=== PATIENT | female | born 1975 | race Caucasian/White ===

== ENCOUNTER → 2017-08-16 08:47 | Outpatient (CLI) | payer MEDICAID, SELFPAY ==
--- NOTE | 2017-08-16 08:49 | MR_ITS ---
MR shoulder RT wo con HISTORY: Right shoulder pain extending into the elbow ORDERING PHYSICIAN: Mark Joseph MD PATIENT AGE: 42 years COMPARISON: Radiograph of 06/14/2016 TECHNIQUE: Standard multiplanar multiecho sequences are performed without contrast. FINDINGS: There are mild hypertrophic changes of the acromioclavicular joint. This however does not cause significant impingement upon the supraspinatus tendon. There is however, a low lying acromion laterally with minimal hypertrophic change along the undersurface of the acromium with subacromial stenosis of 5 mm. There is mild thickening of the supraspinatus tendon with slight increased T2 and T1 signal consistent with tendinopathy/tendinosis. No obvious tear of the supraspinatus or infraspinatus tendon there is also some thickening of the infraspinatus tendon consistent with tendinopathy/tendinosis. Small amount fluid is present in the subacromial region. Along the distal aspect and superior aspect of the supraspinatus muscle there is a small focal area of increased T2 signal suggesting a small amount of fluid. The muscle is discontinuous at this area suggests a small tear in the supraspinatus muscle. The subscapularis and teres minor tendons are intact. No obvious labral tear. Bicipital tendon is in place. A small amount fluid in the subcoracoid region. No fracture or bone bruise. IMPRESSION: 1. Tendinopathy/tendinosis of the supraspinatus and infraspinatus tendons. 2. Mild acromioclavicular arthropathy with subacromial stenosis secondary to bony spurring along the undersurface of the lateral aspect of the acromion. 3. Suspect a small tear of the superior lateral aspect of the supraspinatus muscle. No definite rotator cuff tear however.
== END ==
PROVIDERS: PCP Internal Medicine Adolescent Medicine; Visit Provider Orthopaedic Surgery
DX: M25.511 Pain in right shoulder (principal); G89.29 Other chronic pain; M75.41 Impingement syndrome of right shoulder
CPT/HCPCS: 73221

== ENCOUNTER → 2017-12-11 08:43 | Outpatient (CLI) | payer MEDICAID, SELFPAY ==
[2017-12-11 10:46] LABS: Anion Gap 13.5 mEq/L (5-15); Blood Urea Nitrogen 16 mg/dL (7-18); Carbon Dioxide 26 mmol/L (21.0-32.0); Chloride 105 mmol/L (98-107); Creatinine,Serum 0.93 mg/dL (0.55-1.02); Estimated Glomerular Filt Rate 66 ml/min (>60); GFR (African American) 80 ML/MIN (>60); Glucose 128 mg/dL (74-106); Potassium 3.5 mmoL/L (3.5-5.1); Sodium 141 mmol/L (136-145)
== END ==
PROVIDERS: Visit Provider Internal Medicine
DX: I11.9 Hypertensive heart disease without heart failure (principal); G47.33 Obstructive sleep apnea (adult) (pediatric)
CPT/HCPCS: 36415; 80048

== ENCOUNTER → 2017-12-24 15:57 | Outpatient (CLI) | payer MEDICAID, SELFPAY ==
[2017-12-24 16:18] LABS: Urine Pregnancy, HCG Qual. Negative (Negative)
[2017-12-24 16:19] LABS: Basophils # 0.1 K/mm3 (0-0.2); Basophils % 0.5 % (0.1-2.0); Eosinophils # 0.5 K/mm3 (0.0-0.4); Eosinophils % 4.2 % (0.1-12.0); Hematocrit 43.6 % (37.0-47.0); Hemoglobin 14.1 g/dL (12.2-16.2); Lymphocytes # 3.1 K/mm3 (0.7-4.5); Lymphocytes % 26.7 K/mm3 (10-50); Mean Corpuscular HGB Conc 32.3 g/dL (31.8-35.4); Mean Corpuscular Hemoglobin 28.2 pg (27.0-31.2); Mean Corpuscular Volume 87.3 fl (81-99); Mean Platelet Volume 7.9 fl (7.4-10.4); Monocytes # 0.7 K/mm3 (0.1-1.0); Monocytes % 5.8 % (1.7-9.3); Neutrophils # 7.4 K/mm3 (1.8-7.8); Neutrophils % 62.8 % (37.0-80.0); Platelet Count 350 K/mm3 (142-424); Red Blood Count 4.99 M/mm3 (4.20-5.40); Red Cell Distribution Width 13.5 % (11.5-17.5); White Blood Count 11.7 K/mm3 (4.8-10.8)
--- NOTE | 2017-12-24 16:21 | XR_ITS ---
XR chest 2V HISTORY: ITS.REASON: HTN ORDERING PHYSICIAN: Mark Joseph MD PATIENT AGE: 42 years COMPARISON: 05/22/2011 FINDINGS: The cardiomediastinal silhouette and pulmonary vascularity are within normal limits. The lungs are clear without infiltrates, suspicious nodules, or pleural effusions. No acute bony abnormalities. IMPRESSION: Negative chest, no acute finding
[2017-12-24 18:03] LABS: Alanine Aminotransferase 22 U/L (12-78); Albumin Level 4.2 gm/dL (3.4-5.0); Albumin/Globulin Ratio 1.1 (1.1-1.8); Alkaline Phosphatase 96 U/L (46-116); Anion Gap 14.7 mEq/L (5-15); Aspartate Amino Transferase 14 U/L (15-37); Bilirubin,Total 0.9 mg/dL (0.2-1.0); Blood Urea Nitrogen 35 mg/dL (7-18); Calcium 9.5 mg/dL (8.5-10.1); Carbon Dioxide 30 mmol/L (21.0-32.0); Chloride 103 mmol/L (98-107); Creatinine,Serum 1.51 mg/dL (0.55-1.02); Estimated Glomerular Filt Rate 38 ml/min (>60); GFR (African American) 46 ML/MIN (>60); Globulin 3.7 gm/dl (1.3-3.2); Glucose 97 mg/dL (74-106); Potassium 3.7 mmoL/L (3.5-5.1); Sodium 144 mmol/L (136-145); Total Protein,Serum 7.9 gm/dL (6.4-8.2)
== END ==
PROVIDERS: PCP Internal Medicine Adolescent Medicine; Visit Provider Orthopaedic Surgery
DX: Z01.818 Encounter for other preprocedural examination (principal); M25.511 Pain in right shoulder; M75.41 Impingement syndrome of right shoulder; G89.29 Other chronic pain
CPT/HCPCS: 36415; 71046; 80053; 81025; 85025; 93005

== ENCOUNTER 2018-04-02 10:00 | Outpatient (RCR) | payer MEDICAID, SELFPAY ==
--- NOTE | 2018-02-05 10:20 | HMH.OTOPEV ---
OT Inpatient Evaluation Rehab OT Outpatient Eval Start: 02/05/18 10:09 Freq: Status: Active Protocol: Document 02/05/18 10:10 TFRY (Rec: 02/05/18 10:19 TFRY [id number]) Electronically Signed By Jennifer Santiago OT 02/05/18 10:10 Outpatient Therapy Subjective History Subjective History THIS IS A 42 YEAR OLD RIGHT HANDED FEMALE REFERRED TO OCCUPATIONAL THERAPY PATIENT STATUS POST ARTHROSCOPIC BICEPS TENOTOMY, SUBACROMIAL DECOMPRESSION AND DISTAL CLAVICLE EXERSION ON 01/15/18. Chief Complaint Pain Symptom Type Ache Dull Symptoms Relieved By Rest/Positioning Symptoms Aggravated By Physical Activity Prior Functional Limitations None Current Functional Limitations Reaching Sleeping Symptom Description Constant but Variable Level of pain today (0-10) 5 Pain scale - at its best (0-10) 2 Pain scale - at its worst (0-10) 8 Shoulder/Elbow Eval Shoulder Objective Measurements Shoulder ROM Right Shoulder ROM Limitations Pain Shoulder Abduction Active Range of 140 Motion (degrees) Shoulder Abduction Passive Range of 140 Motion (degrees) Shoulder Flexion Active Range of Motion 140 (degrees) Query Text: Shoulder Flexion Passive Range of Motion 150 (degrees) Shoulder External Rotation Active Range 40 of Motion (degrees) Shoulder External Rotation Passive Range 60 of Motion (degrees) Shoulder Internal Rotation Active Range WFL of Motion (degrees) Shoulder Internal Rotation Passive Range WFL of Motion (degrees) pain with passive ROM shoulder exam right standard decreased ROM shoulder exam standard right Shoulder MMT Shoulder Strength Reason Not Measured Orthopedic Precautions Elbow Objective Measurements OT Outpatient Assessment Impairments Problems/Impairments Impaired Range of Motion Impaired Strength Impaired Lifting Impaired Dressing Impaired Shower/Bathing Impaired Household Care Subjective C/O Pain Prognosis Rehab Potential Fair Clinical Impression Consistent with Diagnosis Yes Short Term Goals Number of Weeks 3 Increase Range of Motion Yes: RIGHT SHOULDER AROM WFL Increase Strength Yes: RIGHT
== END 2018-04-02 10:05 | disposition home or self-care (01) ==
LOC: OT 10:00
PROVIDERS: PCP Internal Medicine Adolescent Medicine; Visit Provider Orthopaedic Surgery
DX: M67.911 Unspecified disorder of synovium and tendon, right shoulder (principal); M75.41 Impingement syndrome of right shoulder; M19.011 Primary osteoarthritis, right shoulder
CPT/HCPCS: 97014; 97110; 97140; 97165; G0283

== ENCOUNTER → 2018-04-18 08:41 | Outpatient (CLI) | payer MEDICAID, SELFPAY ==
--- NOTE | 2018-04-18 08:43 | XR_ITS ---
XR shoulder RT min 2V HISTORY: Right shoulder pain, follow-up surgery ITS.REASON: sp RIGHT shoulder surgery/ dos 01/15/18 ORDERING PHYSICIAN: Mark Joseph MD PATIENT AGE: 42 years Comparison: 06/14/2016 FINDINGS: There has been an interval osteotomy of the acromioclavicular joint. Glenohumeral joint has an unremarkable appearance. No obvious subacromial stenosis. IMPRESSION: Status post osteotomy of the AC joint otherwise negative
== END ==
PROVIDERS: PCP Internal Medicine Adolescent Medicine; Visit Provider Orthopaedic Surgery
DX: Z47.89 Encounter for other orthopedic aftercare (principal)
CPT/HCPCS: 73030

== ENCOUNTER → 2018-09-02 16:08 | Outpatient (CLI) | payer MEDICAID, SELFPAY ==
--- NOTE | 2018-09-02 16:11 | MM_ITS ---
MM Dig screening mamm BI w/CAD CAD Screening COMPARISON: None, this is baseline INDICATION: There is a history of breast cancer patient's great grandmother TECHNIQUE: Standard CC and MLO images were obtained. R2 CAD reviewed. FINDINGS: The breasts are composed primarily of fat with minimal scattered fiber glandular densities throughout each breast. There is a question of a symmetric density with irregular borders upper central portion right breast at the 12:00 position. This most likely is a summation shadow but since this is the baseline study with family history of breast cancer recommend the patient return for spot compression views for better evaluation. There are no suspicious microcalcifications. IMPRESSION: Fatty type breast parenchyma with possible asymmetric density right breast BI-RADS Category: 0 Need Additional Imaging Evaluation RECOMMENDED FOLLOW-UP: IMM - IMMEDIATE FOLLOW-UP RECOMMENDED (A letter has been sent to the patient regarding results of the study.)
== END ==
PROVIDERS: PCP Internal Medicine Adolescent Medicine; Visit Provider Internal Medicine Adolescent Medicine
DX: Z12.31 Encounter for screening mammogram for malignant neoplasm of breast (principal)
CPT/HCPCS: 77067

== ENCOUNTER → 2018-09-13 12:52 | Outpatient (CLI) | payer MEDICAID, SELFPAY ==
--- NOTE | 2018-09-13 12:55 | MM_ITS ---
MM Dig mamm DX unilat RT CAD INDICATION: Follow-up abnormal mammogram ORDERING PHYSICIAN: Abner Baca MD PATIENT AGE: 43 years COMPARISON: 09/02/2018 TECHNIQUE: Problem-solving views performed of the asymmetric density in the lateral aspect of the right breast FINDINGS: The area of asymmetric density does appear to compress out as fibroglandular tissue. No discrete mass or malignant appearing microcalcifications evident. IMPRESSION: No convincing evidence of malignancy. Probably benign findings. Recommend 6 month follow-up to confirm baseline in this patient. BI-RADS Category: 3 Probably Benign Finding Short Term Follow-up RECOMMENDED FOLLOW-UP: 6M - 6 MONTH FOLLOW-UP (A letter has been sent to the patient regarding results of the study.)
== END ==
PROVIDERS: PCP Internal Medicine Adolescent Medicine; Visit Provider Internal Medicine Adolescent Medicine
DX: R92.8 Other abnormal and inconclusive findings on diagnostic imaging of breast (principal)
CPT/HCPCS: 77065

== ENCOUNTER → 2018-12-12 06:31 | Outpatient (CLI) | payer MEDICAID, SELFPAY ==
--- NOTE | 2018-12-12 06:32 | NM_ITS ---
SPECT MYOCARDIAL PERFUSION SCAN, REST AND STRESS: EXERCISE STRESS: [facility] REVIEW QGS EF AND WALL MOTION EVALUATION: QPS - PERFUSION EVALUATION: Rest imaging performed after administration of10.08 millicuries Tc MIBI. Dose administered [id number] a.m., with imaging thereafter. Stress imaging was then performed following5 minutes 30 seconds of exercise stress. The patient achieved a heart [id number] with projected heart rate of151 . Resting BP124/84 with stress 184/86. At maximum exercise stress,30.2 millicuries Tc MIBI administered at830 a.m. with [id number] minutes thereafter. FINDINGS: Perfusion Evaluation: The single slice spect images as well as the [facility] bull's-eye data summary were reviewed. Wall Motion and Ejection Fraction Evaluation: Gated SPECT review and analysis used to evaluate these features. There is a 64 % left ventricular ejection fraction. There seems to be good wall motion Stress images reveal uniform myocardial activity while rest images reveal decreased activity in the anterior wall. IMPRESSION: Abnormal stress test with reverse redistribution in the anterior wall accompanied by anterior apical hypokinesis. Normal ejection fraction
--- NOTE | 2018-12-12 06:32 | CA_ITS ---
PROCEDURE: 2-D M-mode and color Doppler study INDICATIONS FOR THE TEST: Chest pain X COPD Heart Murmur Tobacco Smoking Palpitations FatigueX Syncope EdemaX HypertensionXDiabetes Mellitus Rheumatic Fever SOBXDOEXObesityXHyperlipidemiaX Family History HD Additional History PATIENT INFORMATION HEIGHT: 63 WEIGHT:226 GENDER: Female B/P:120/55 2-D/M-MODE INTERPRETATION: 2-D MEASUREMENTS OBSERVED VALUES IN CMS Right Ventricular Dimension (RVDd) 2.2 Interventricular Septum (Thickness)(IVsd) .8 Left Ventricular Internal Dimensions(LVIDd) 4.8 Left Ventricular Posterior Wall (Thickness)(LVPWd) .8 Aortic Root 3.1 Aortic Cusp Separation 1.9 Left Atrial Dimensions (LAD) 2.7 2D 1. Left atrium is normal size, left ventricle is normal size, there is no concentric left ventricular hypertrophy, with no regional wall motion abnormality. 2. The right atrium and right ventricle are normal size and contractility. 3. The aortic, mitral and tricuspid valves are grossly normal. 4. The pulmonic valve is poorly visualized. 5. No significant pericardial effusion noted. DOPPLER INTERROGATION: Doppler interrogation of the aortic, mitral and tricuspid valvular presence of trace mitral and tricuspid regurgitation of no hemodynamic significance, diastolic parameters are within normal range. CONCLUSION: 1. Normal left ventricular size, preserved left ventricular systolic function, visually estimated ejection fraction 55% with no regional wall motion abnormality, diastolic parameters are within normal range. 2. Mild mitral and tricuspid regurgitation 3. No significant pericardial effusion noted.
--- NOTE | 2018-12-12 09:38 | HMH.ITSHM ---
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 [] omeprazole ranitidine lisinopril carvedilol atorvastatin
== END ==
PROVIDERS: PCP Internal Medicine Adolescent Medicine; Visit Provider Internal Medicine
DX: R07.9 Chest pain, unspecified (principal); R53.83 Other fatigue; I10 Essential (primary) hypertension; R06.02 Shortness of breath; R94.39 Abnormal result of other cardiovascular function study; R06.00 Dyspnea, unspecified; E66.9 Obesity, unspecified; E78.5 Hyperlipidemia, unspecified
CPT/HCPCS: 78452; 93017; 93306; A9502

== ENCOUNTER → 2018-12-27 14:02 | Outpatient (CLI) | payer MEDICAID, SELFPAY | PROVIDERS: PCP Internal Medicine Adolescent Medicine; Visit Provider Physician Assistant | DX: I77.0 Arteriovenous fistula, acquired (principal); M79.601 Pain in right arm | CPT/HCPCS: 93931 ==

== ENCOUNTER → 2019-02-21 14:48 | Outpatient (CLI) | payer MEDICAID, SELFPAY ==
--- NOTE | 2019-02-21 14:53 | MM_ITS ---
MM Dig mamm DX unilat RT CAD INDICATION: Follow-up abnormal mammogram, 6 month follow-up ORDERING PHYSICIAN: Abner Baca MD PATIENT AGE: 43 years COMPARISON: 09/13/2018, 09/02/2018 TECHNIQUE: Standard images performed along with spot compression views and rolled views of the right breast FINDINGS: Mostly fatty replaced fibroglandular tissue. Previously noted questionable area of architectural distortion in lateral aspect of the right breast appears less apparent with some internal fat in this region on the cc view no malignant. No mass or malignant appearing microcalcification. IMPRESSION: Benign findings, no evidence of malignancy. Recommend continued six-month follow-up of both breasts. Patient may return to screening at that time BI-RADS Category: 2 Benign Finding(s) RECOMMENDED FOLLOW-UP: 6M - 6 MONTH FOLLOW-UP (A letter has been sent to the patient regarding results of the study.)
== END ==
PROVIDERS: PCP Internal Medicine Adolescent Medicine; Visit Provider Internal Medicine Adolescent Medicine
DX: R92.8 Other abnormal and inconclusive findings on diagnostic imaging of breast (principal)
CPT/HCPCS: 77065

== ENCOUNTER → 2019-09-03 15:48 | Outpatient (CLI) | payer OTHER, SELFPAY ==
--- NOTE | 2019-09-03 15:54 | XR_ITS ---
PROCEDURE: XR CHEST 2V CLINICAL HISTORY: HIGH RISK MEDS Dyspnea, cough COMPARISON: CXR2V XR chest 2V from 12/24/2017 FINDINGS: The cardiomediastinal silhouette and pulmonary vascularity are within normal limits. The lungs are clear without infiltrates, suspicious nodules, or pleural effusions. No acute bony abnormalities. IMPRESSION: No acute findings. Dictated by: Jayce Mcnulty 09/03/2019 17:21 Electronically signed by Jayce Mcnulty in [place] 09/03/2019 17:21
== END ==
PROVIDERS: PCP Internal Medicine Adolescent Medicine; Visit Provider Nurse Practitioner
DX: Z79.899 Other long term (current) drug therapy (principal)
CPT/HCPCS: 71046

== ENCOUNTER → 2019-12-11 13:07 | Outpatient (CLI) | payer OTHER, SELFPAY | PROVIDERS: PCP Internal Medicine Adolescent Medicine; Visit Provider Nurse Practitioner Family | DX: G47.33 Obstructive sleep apnea (adult) (pediatric) (principal); R53.83 Other fatigue; Z68.41 Body mass index [BMI] 40.0-44.9, adult | CPT/HCPCS: 95806 ==

== ENCOUNTER → 2020-01-27 10:40 | Outpatient (CLI) | payer OTHER, SELFPAY ==
[2020-01-27 13:45] LABS: Coronavirus 19 IgG Antibody Negative (Negative); Coronavirus 19 IgM Antibody Negative (Negative)
== END ==
PROVIDERS: Visit Provider Specialist
DX: Z01.818 Encounter for other preprocedural examination (principal); G47.33 Obstructive sleep apnea (adult) (pediatric)
CPT/HCPCS: 36415; 86328

== ENCOUNTER → 2020-02-27 15:10 | Outpatient (CLI) | payer OTHER, SELFPAY ==
--- NOTE | 2020-02-27 16:03 | MM_ITS ---
PROCEDURE: MM DIG SCREENING MAMM BI W/CAD Referring Doctor: Niki Jacome Patient Age:44Y CLINICAL INDICATION: SCREENING routine screening mammogram 44-year-old. Takes Estrogen. No new complaints. Family history maternal great grandmother with breast cancer COMPARISON: MG SCBI MM Dig screening mamm BI w/CAD from 09/02/2018 MG DXRT MM Dig mamm DX unilat RT CAD from 09/13/2018 MG DIG MAMM-DX UNI-RT from 02/21/2019 TECHNIQUE: Standard CC and MLO images were obtained. R2 CAD reviewed. Bilateral digital breast tomosynthesis included. Additional left breast MLO nipple profile view included FINDINGS: Lower density breast with moderate fatty replacement and minimal residual fibroglandular elements. Left breast, stable with no new findings of significant concern Small focal rather linear area of density towards the medial/superior left breast noted with similar feature on previous 2019 left study. It appears to dissipate between the 2 standard MLO views; with no focal mass here on tomosynthesis Right breast: No new areas significant concern Small focal area of density appears stable compared to the February, September and August 2018 mammogram studies. It appears slightly stellate but dissipates on multiple views and appears to dissipate on today's tomosynthesis-the supporting stability. However patient does warrant close ongoing follow-up for these 2 minor areas of asymmetry. A bilateral mammogram Mammogram 6-9 months suggested to further confirm stability of the small densities younger the patient. IMPRESSION: No significant new findings. . However small minor bilateral asymmetric densities deep breasts again noted,-which would benefit from short interval follow-up again to further confirm stable baseline character . Suggest bilateral mammogram 6-9 months months to further confirm stability in this younger patient hopefully with routine protocol thereafter BI-RAD Category: 3 Probably Benign Finding Short Term Follow-up Follow-upP: Bilateral follow-up 6-9 months (A letter has been sent to the patient regarding results of the study.) Dictated by: Julio Cali MD 02/29/2020 10:38 Julio Cali MD in [place] 02/29/2020 10:38
[2020-02-27 16:13] VITALS: BMI 42.3
== END ==
PROVIDERS: PCP Internal Medicine Adolescent Medicine; Visit Provider Nurse Practitioner Family
DX: Z12.31 Encounter for screening mammogram for malignant neoplasm of breast (principal); Z71.3 Dietary counseling and surveillance; E11.9 Type 2 diabetes mellitus without complications; Z79.84 Long term (current) use of oral hypoglycemic drugs
CPT/HCPCS: 77063; 77067; 97802

== ENCOUNTER → 2020-06-22 14:43 | Outpatient (CLI) | payer OTHER, SELFPAY ==
--- NOTE | 2020-06-22 14:48 | XR_ITS ---
PROCEDURE: XR FOOT LT MIN 3V CLINICAL INDICATION: LT FOOT PAIN COMPARISON: No exams were available for comparison FINDINGS: No fracture or dislocation. No lytic or blastic change. There is normal mineralization. The joint spaces are well-preserved. No significant degenerative/arthritic changes. No erosive changes evident. Other findings:There is a small calcaneal spur. Type 1 os navicularis is present IMPRESSION: No acute findings. Dictated by: Jay Mason MD 06/22/2020 16:54 Jay Mason MD in [place] 06/22/2020 16:54
== END ==
PROVIDERS: PCP Internal Medicine Adolescent Medicine; Visit Provider Nurse Practitioner Family
DX: M79.672 Pain in left foot (principal)
CPT/HCPCS: 73630

== ENCOUNTER → 2020-09-20 09:53 | Outpatient (CLI) | payer OTHER, SELFPAY ==
--- NOTE | 2020-09-20 10:08 | US_ITS ---
PROCEDURE: US EXTREMITY LT LIMITED CLINICAL INDICATION: LT WRIST LUMP Palpable abnormality along anterior aspect of the left wrist. COMPARISON: No exams were available for comparison FINDINGS: There is a septated cystic lesion in the left wrist anteriorly corresponding to the palpable abnormality. This is 7 x 6 mm and may represent a ganglion cyst. IMPRESSION: Septated cystic lesion along the anterior aspect of the wrist which may be due to ganglion cyst at 7 x 6 mm Dictated by: Jay Mason MD 09/21/2020 18:35 Jay Mason MD in [place] 09/21/2020 18:35
== END ==
PROVIDERS: PCP Internal Medicine Adolescent Medicine; Visit Provider Internal Medicine Adolescent Medicine
DX: R22.32 Localized swelling, mass and lump, left upper limb (principal)
CPT/HCPCS: 76882

== ENCOUNTER → 2020-09-27 13:17 | Outpatient (CLI) | payer OTHER, SELFPAY ==
--- NOTE | 2020-09-27 14:18 | MM_ITS ---
PROCEDURE: MM DIG MAMM BI DX W/CAD Digital Breast Tomosynthesis Included CLINICAL INDICATION: ABN MAMM COMPARISON: MG DXRT MM Dig mamm DX unilat RT CAD from 09/13/2018 MG MM DIG MAMM DX UNILAT RT CAD from 02/21/2019 MG MM DIG SCREENING MAMM BI W/CAD from 02/27/2020 TECHNIQUE: Standard CC and MLO images and 3D Tomosynthesis was obtained. R2 CAD reviewed. FINDINGS: With minimal scattered fibroglandular densities throughout each breast. There are 2 mole markers right breast. Questionable areas seen in each breast on the previous study are less prominent and benign feel there is no suspicious lesion in either breast. There are no suspicious microcalcifications. IMPRESSION: Fatty type breast parenchyma with no suspicious lesions seen BI-RAD Category: 2 Benign Finding(s) FOLLOW-UP: 1YR 1 Year Follow-up (A letter has been sent to the patient regarding results of the study.) Dictated by: Dr. Codey Alberto MD 10/05/2020 08:01 Dr. Codey Alberto MD in [place] 10/05/2020 08:01
== END ==
PROVIDERS: PCP Internal Medicine Adolescent Medicine; Visit Provider Nurse Practitioner Family
DX: R92.8 Other abnormal and inconclusive findings on diagnostic imaging of breast (principal)
CPT/HCPCS: 77062; 77066; G0279

== ENCOUNTER 2020-10-27 18:11 | Emergency (ER) | payer OTHER, SELFPAY ==
[2020-10-27 18:15] VITALS: BP 153/92; PULSE 97; RESP 14; TEMP 36.9; O2SAT 99; BMI 37.2
--- NOTE | 2020-10-27 18:26 | XR_ITS ---
PROCEDURE: XR CLAVICLE LT CLINICAL INDICATION: fall Pain COMPARISON: No exams were available for comparison FINDINGS: No fracture or dislocation. No lytic or blastic change. There is normal mineralization. The joint spaces are well-preserved. No significant degenerative/arthritic changes. No erosive changes evident. Other findings:None. IMPRESSION: No acute findings. Dictated by: Jay Mason MD 10/28/2020 06:20 Jay Mason MD in [place] 10/28/2020 06:20
--- NOTE | 2020-10-27 18:26 | XR_ITS ---
PROCEDURE: XR SHOULDER LT MIN 2V CLINICAL INDICATION: fall Pain COMPARISON: CR [id number] VIEWS from 06/14/2016 CR SHOULDCMRT XR shoulder RT min 2V from 04/18/2018 FINDINGS: No fracture or dislocation. No lytic or blastic change. There is normal mineralization. The joint spaces are well-preserved. No significant degenerative/arthritic changes. No erosive changes evident. Other findings:None. IMPRESSION: No acute findings. Dictated by: Jay Mason MD 10/28/2020 06:23 Jay Mason MD in [place] 10/28/2020 06:23
--- NOTE | 2020-10-27 18:26 | XR_ITS ---
PROCEDURE: XR HIP LT 2-3V W/PELVIS CLINICAL INDICATION: fall Injury with pain COMPARISON: No exams were available for comparison FINDINGS: No fracture or dislocation is evident. No significant degenerative change. No lytic or blastic change. Unremarkable soft tissues. IMPRESSION: No acute findings. Dictated by: Jay Mason MD 10/28/2020 06:24 Jay Mason MD in [place] 10/28/2020 06:24
--- NOTE | 2020-10-27 19:15 | HMH.EDUTC ---
[facility] [place] Disposition Clinical Impression: Left hip pain Fall Qualifiers: Encounter type: initial encounter Qualified Code(s): W19.XXXA - Unspecified fall, initial encounter Left shoulder pain Qualifiers: Chronicity: acute Qualified Code(s): M25.512 - Pain in left shoulder Disposition: Home, Self-Care Condition on Discharge: Good Instructions: DI for Shoulder Pain, DI for Hip Pain Additional Instructions: Rest the extremity, Elevate the extremity as tolerated while you are resting. Take ibuprofen for pain. I sent in a prescription to your pharmacy. Follow up with Dr. Lopez (orthopedics). Sometimes there can be fractures that don't show up well on the first set of x-rays. So, you should follow up if you continue to have symptoms. I put in a referral but you need to call her office and schedule an appointment. Follow up with your regular doctor. GO TO THE ER FOR ANY WORSENING SYMPTOMS Prescriptions: Ibuprofen [Ibuprofen 800mg Tablet] 800 mg PO Q8HP PRN #30 tab PRN Reason: Moderate Pain Transmission Status: Received by [facility] Referrals: Abner Baca MD [Primary Care Provider] - Elizabeth Lopez MD [Physician] - Time of Disposition: 19:19 Medical Decision Making - Medical Records Medical records reviewed: No: I reviewed the patient's medical records. - John Inquiry Pt receiving controlled substance: No Vital Signs: 10/27/20 18:15 10/27/20 19:18 Temperature 98.5 F 98.5 F Temperature Source Oral Pulse Rate 97 H Pulse Rate [Right Brachial] 97 H Respiratory Rate 14 14 Blood Pressure 153/92 H Blood Pressure [Right Arm] 153/92 H Blood Pressure Mean [Right Arm] 112 Blood Pressure Source [Right Arm] Automatic Cuff Blood Pressure Position [Right Arm] Sitting 02 Sat by Pulse Oximetry 99 Oxygen Delivery Method Room Air [facility] [place] HPI - General Stated complaint: ao 10/23 FELL INJURED SHOULDER Time Seen by Provider: 10/27/20 19:15 Mode of Arrival: Ambulatory Source of Information: Patient Limitations: No Limitations Description of Symptoms (Recalled from Triage Doc. by RN): PATIENT REPORTS SHE FELL ON PORCH ON SUNDAY. C/O LEFT SHOULDER PAIN THAT RADIATES INTO CLAVICAL AND LEFT HIP PAIN HEENT Symptoms (Recalled from RN notes): No Resp Symptoms (Recalled from RN notes): No Skin Symptoms (Recalled from RN notes): No MS Symptoms (Recalled from RN notes): Yes Functional Status (Recalled from RN notes): WNL - History of Present Illness Provider Complaint: She states that she fell 4 days ago on her porch. When she fell she came down on her left shoulder and left hip. Since then she has had left shoulder and left hip pain. Her shoulder pain is worse than her hip pain. She states that when she raises her arm it hurts worse. - Related Data Home Medications Medication Instructions Recorded Confirmed bupropion HCl 150 mg tablet,12 hr 150 mg PO QDAY 08/09/17 01/13/20 sustained-release citalopram 10 mg tablet 10 mg PO QDAY 08/09/17 01/13/20 loratadine 10 mg capsule 10 mg PO QDAY 08/09/17 01/13/20 fluticasone propionate 50 50 mcg INTRANASAL DAILY PRN g 11/13/17 01/13/20 mcg/actuation nasal spray,suspension meloxicam 15 mg tablet 15 mg PO DAILY tab 12/13/17 01/13/20 omeprazole 20 mg capsule,delayed 20 mg PO DAILY cap 12/13/17 01/13/20 release metformin 500 mg tablet 500 mg PO QHS tab 12/25/17 01/13/20 amlodipine 10 mg tablet 10 mg PO DAILY tab 07/21/19 01/13/20 estradiol 0.5 mg tablet 1 mg PO DAILY tab 07/21/19 01/13/20 folic acid 1 mg tablet 1 mg PO DAILY tab 01/13/20 01/13/20 aspirin 81 mg tablet,delayed 81 mg PO DAILY 02/17/20 02/17/20 release dupilumab 300 mg/2 mL subcutaneous mg SQ Q2W ml 02/17/20 syringe Previous Rx's Medication Instructions Recorded Ibuprofen [Ibuprofen 600mg 600 mg PO Q6HP PRN #30 tab 10/21/18 Tablet] atorvastatin 40 mg tablet 40 mg PO DAILY #30 tab 07/01/19 lisinopril 20 1 tab PO BID #60 tab 05/27/20
[2020-10-27 19:18] VITALS: BP 153/92; PULSE 97; RESP 14; TEMP 36.9; O2SAT 99
== END 2020-10-27 19:30 | disposition home or self-care (01) ==
PROVIDERS: Emergency Provider Nurse Practitioner Family; PCP Internal Medicine Adolescent Medicine
DX: M25.552 Pain in left hip (principal); M25.512 Pain in left shoulder; W01.0XXA Fall on same level from slipping, tripping and stumbling without subsequent striking against object, initial encounter; Y92.018 Other place in single-family (private) house as the place of occurrence of the external cause; F41.8 Other specified anxiety disorders; E11.9 Type 2 diabetes mellitus without complications; E78.5 Hyperlipidemia, unspecified; I10 Essential (primary) hypertension; K21.9 Gastro-esophageal reflux disease without esophagitis; Z87.891 Personal history of nicotine dependence; Z79.899 Other long term (current) drug therapy; Z91.040 Latex allergy status; Z88.8 Allergy status to other drugs, medicaments and biological substances
CPT/HCPCS: 73000; 73030; 73502; 99202; G0463

== ENCOUNTER → 2020-11-01 12:00 | Outpatient (CLI) | payer OTHER, SELFPAY ==
--- NOTE | 2020-11-01 12:02 | XR_ITS ---
PROCEDURE: XR WRIST LT MIN 3V CLINICAL INDICATION: ganglion cyst COMPARISON: No exams were available for comparison FINDINGS: No fracture or dislocation. No lytic or blastic change. There is normal mineralization. The joint spaces are well-preserved. No significant degenerative/arthritic changes. No erosive changes evident. Other findings:None. IMPRESSION: No acute findings. Dictated by: Jay Mason MD 11/01/2020 17:30 Jay Mason MD in [place] 11/01/2020 17:30
== END ==
PROVIDERS: PCP Internal Medicine Adolescent Medicine; Visit Provider Orthopaedic Surgery
DX: M25.539 Pain in unspecified wrist (principal)
CPT/HCPCS: 73110

== ENCOUNTER 2020-12-17 13:00 | Outpatient (RCR) | payer OTHER, SELFPAY ==
--- NOTE | 2020-11-08 11:32 | HMH.OTOPEV ---
OT Inpatient Evaluation Rehab OT Outpatient Eval Start: 11/08/20 11:19 Freq: Status: Active Protocol: Document 11/08/20 11:20 AUDREYCHEYENNE (Rec: 11/08/20 11:31 AUDREYCHEYENNE [id number]) Electronically Signed By Jenna Martinez OT 11/08/20 11:20 Outpatient Therapy Subjective History Subjective History 45 year old woman referred to skilled OP OT services for L shoulder sprain. 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 Symptom Type Ache Symptoms Relieved By Nothing,OTC Meds Symptoms Aggravated By Physical Activity Prior Functional Limitations None Current Functional Limitations Reaching,Lifting,Recreation Activity Symptom Description Constant and Continuous Level of pain today (0-10) 5 Pain scale - at its best (0-10) 5 Pain scale - at its worst (0-10) 10 Shoulder/Elbow Eval Shoulder Objective Measurements Shoulder ROM Right Shoulder Abduction Active Range of 115 Motion (degrees) Shoulder Flexion Active Range of Motion 120 (degrees) Query Text: Shoulder External Rotation Active Range 64 of Motion (degrees) Shoulder Internal Rotation Active Range 42 of Motion (degrees) pain with active ROM shoulder exam right standard Shoulder MMT Left Shoulder Abduction Strength Grade 3- Fair- Shoulder Extension Strength Grade 3- Fair- Shoulder Flexion Strength Grade 3- Fair- Shoulder Horizontal Abduction Strength 3- Fair- Grade Shoulder External Rotation Strength 3- Fair- Grade Shoulder Internal Rotation Strength 3- Fair- Grade Elbow Objective Measurements OT Outpatient Assessment Impairments Problems/Impairments Impaired Range of Motion, Impaired Strength,Impaired Endurance,Subjective C/O Pain Prognosis Rehab Potential Good Clinical Impression Consistent with Diagnosis Yes Short Term Goals Number of Weeks 2 Increase Range of Motion Yes: L UE AROM flex: 120; ABD: 115; ER:64; IR:42 Increase Strength Yes: L UE shoulder strength 2+ to 3-/5 throughout Increase Endurance Yes: Increase endurance to 30 mins of exer prior to RB Decrease Subjective C/O Pain Yes: 8/10 pain at worst Patient to be Ind w/ HEP Yes: AAROM Patient to be Ind w/ Advanced HEP Yes: Strengthening Ingredient 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
== END 2020-12-17 13:05 | disposition home or self-care (01) ==
LOC: OT 13:00
PROVIDERS: PCP Internal Medicine Adolescent Medicine; Visit Provider Orthopaedic Surgery
DX: S43.402A Unspecified sprain of left shoulder joint, initial encounter (principal); S49.92XA Unspecified injury of left shoulder and upper arm, initial encounter
CPT/HCPCS: 97165

== ENCOUNTER → 2020-12-23 12:05 | Outpatient (CLI) | payer OTHER, SELFPAY ==
[2020-12-23 12:34] LABS: Basophils % 0.5 % (0.1-2.0); Eosinophils # 0.3 K/mm3 (0.0-0.4); Eosinophils % 3.2 % (0.1-12.0); Hematocrit 32.5 % (37.0-47.0); Hemoglobin 10.9 g/dL (12.2-16.2); Lymphocytes # 2.7 K/mm3 (0.7-4.5); Lymphocytes % 33.8 % (10-50); Mean Corpuscular HGB Conc 33.6 g/dL (31.8-35.4); Mean Corpuscular Hemoglobin 26.3 pg (27.0-31.2); Mean Corpuscular Volume 78.3 fl (81-99); Mean Platelet Volume 8.3 fl (7.4-10.4); Monocytes # 0.6 K/mm3 (0.1-1.0); Neutrophils # 4.4 K/mm3 (1.8-7.8); Neutrophils % 55.4 % (37.0-80.0); Platelet Count 316 K/mm3 (142-424); Red Blood Count 4.15 M/mm3 (4.20-5.40); Red Cell Distribution Width 15.4 % (11.5-17.5)
[2020-12-23 12:48] LABS: Hemoglobin A1C 5.4 % (4.0-6.0)
[2020-12-23 13:09] LABS: Chloride 106 mmol/L (98-107); Sodium 137 mmol/L (136-145)
[2020-12-23 13:10] LABS: Potassium 3.8 mmoL/L (3.5-5.1)
[2020-12-23 13:12] LABS: Alanine Aminotransferase 15 U/L (12-78); Albumin Level 3.9 g/dl (3.5-5.0); Albumin/Globulin Ratio 1.3 (1.1-1.8); Alkaline Phosphatase 77 U/L (38-126); Anion Gap 11.8 mEq/L (5-15); Aspartate Amino Transferase 21 U/L (14-36); Bilirubin,Total 0.4 mg/dl (0.2-1.3); Blood Urea Nitrogen 14 mg/dl (7-17); Calcium 8.9 mg/dl (8.4-10.2); Carbon Dioxide 23 mmol/L (22.0-30.0); Cholesterol 203 mg/dl (140-200); Estimated Glomerular Filt Rate 91 ml/min (>60); GFR (African American) 110 ML/MIN (>60); Globulin 2.9 g/dL (1.3-3.2); Glucose 98 mg/dl (74-100); Total Protein,Serum 6.8 g/dl (6.3-8.2); Triglycerides 493 mg/dl (30-150)
[2020-12-23 13:13] LABS: Chol/HDL Ratio 4.2 (1-3.5); HDL Cholesterol 48 mg/dl (40-60)
[2020-12-23 13:24] LABS: Direct LDL Cholesterol 73.86 mg/dL (100-129)
== END ==
PROVIDERS: Visit Provider Internal Medicine Adolescent Medicine
DX: E11.9 Type 2 diabetes mellitus without complications (principal); I10 Essential (primary) hypertension; E78.5 Hyperlipidemia, unspecified; Z79.84 Long term (current) use of oral hypoglycemic drugs
CPT/HCPCS: 36415; 80053; 80061; 83036; 85025

== ENCOUNTER → 2021-02-04 15:22 | Outpatient (CLI) | payer OTHER, SELFPAY | PROVIDERS: Visit Provider Urology | DX: N39.0 Urinary tract infection, site not specified (principal) | CPT/HCPCS: 87086; 87088; 87186 ==

== ENCOUNTER → 2021-02-18 09:24 | Outpatient (CLI) | payer OTHER, SELFPAY | PROVIDERS: Visit Provider Pathology Anatomic Pathology & Clinical Pathology | DX: Z01.812 Encounter for preprocedural laboratory examination (principal); Z11.52 Encounter for screening for COVID-19; R32 Unspecified urinary incontinence | CPT/HCPCS: U0003 ==

== ENCOUNTER 2021-02-21 08:07 | Day surgery (SDC) | payer OTHER, SELFPAY ==
[2021-02-17 14:39] VITALS: BMI 42.0
[2021-02-21] VITALS (11 sets, daily range): BP systolic 124–152; BP diastolic 71–96; PULSE 94–133; RESP 16–18; TEMP 36.2–43; O2SAT 93–99
[2021-02-21 08:40] LABS: POC Glucose,Bedside 106 (70-110)
[2021-02-21 08:46] LABS: Chloride 105 mmol/L (98-107); Potassium 3.7 mmoL/L (3.5-5.1); Sodium 139 mmol/L (136-145)
[2021-02-21 08:49] LABS: Blood Urea Nitrogen 13 mg/dl (7-17); Creatinine Clearance Estimated 63 mL/min (50-200); Estimated Glomerular Filt Rate 68 ml/min (>60); GFR (African American) 82 ML/MIN (>60)
[2021-02-21 08:50] LABS: Anion Gap 13.7 mEq/L (5-15); Basophils % 0.4 % (0.1-2.0); Calcium 8.9 mg/dl (8.4-10.2); Carbon Dioxide 24 mmol/L (22.0-30.0); Eosinophils # 0.2 K/mm3 (0.0-0.4); Eosinophils % 1.7 % (0.1-12.0); Glucose 109 mg/dl (74-100); Hematocrit 37.8 % (37.0-47.0); Hemoglobin 12.7 g/dL (12.2-16.2); Lymphocytes # 3.8 K/mm3 (0.7-4.5); Lymphocytes % 42.3 % (10-50); Mean Corpuscular HGB Conc 33.7 g/dL (31.8-35.4); Mean Corpuscular Hemoglobin 26.7 pg (27.0-31.2); Mean Corpuscular Volume 79.1 fl (81-99); Mean Platelet Volume 8.2 fl (7.4-10.4); Monocytes # 0.6 K/mm3 (0.1-1.0); Monocytes % 6.6 % (1.7-9.3); Neutrophils # 4.4 K/mm3 (1.8-7.8); Neutrophils % 48.9 % (37.0-80.0); Platelet Count 335 K/mm3 (142-424); Red Blood Count 4.77 M/mm3 (4.20-5.40); Red Cell Distribution Width 16.6 % (11.5-17.5); White Blood Count 8.9 K/mm3 (4.8-10.8)
--- NOTE | 2021-02-21 08:54 | P.PN_ITS ---
[facility] Anesthesia Checklist - Patient Identification Patient Identification: Arm Band - Structural Data Admitted From: Home Planned Operative Procedure/s: Transobturator Taping Consent for Planned Operative Procedure(s) Verified: Yes Verified Documents: Surgical Consent, History and Physical - NPO Status Verified Time NPO: 00:00 - Additional verifications Anesthesia Reactions: No Hx Blood Transfusions: No Blood Transfusion Reaction: No - Airway Assessment C-Spine Mobility Assessed: Yes (mp2) TMJ Mobility Assessed: Yes Dentition: Good Dentition - Neurological Assessment Level of Consciousness: Awake, Alert - Anesthesia Plan Anesthesia Risk discussed: Yes Anesthesia Plan: Verified ASA Class: III Anesthesia Type: General [facility] History I have reviewed the patient's past medical history: Yes Medical History: Reports:: Anxiety, Depression, Diabetes Mellitus Type 2, Gastroesophageal Reflux Disease(GERD), Hyperlipidemia, Hypertension, Lung Disease (SHARI-cpap hs), Urinary Tract Infection Denies:: Cancer, Diabetes Mellitus Type 1, Internal Pacemaker, MRSA, Seizures *Have you ever received a pneumonia vaccine?: Yes *Have you received a flu vaccine this season?: Yes Other Medical History: Reports: Other. Denies: Blood Transfusion Reaction Anesthesia experience/problems:: nac Laterality Cases: Right: Arthroscopy Shoulder, Bilateral: Other Other Surgeries: Yes: Hysterectomy-Total. No: Pacemaker Amputation: No Fractures: No - *Social History Last grade of school completed: High school graduate Smoking Status: Never smoker Tobacco Type: cigarettes Alcohol Intake: never Alcohol Intake Frequency:: other Substance Use Type: denies use *Occupational Status:: employed Housing: house Household Members: spouse *Travel in the last 8 weeks: None - Psychiatric History Pschychiatric History:: Reports:: Anxiety, Depression Family Hx:: Heart Attack, Hypertension, Thyroid Disorder
--- NOTE | 2021-02-21 11:56 | P.PN_ITS ---
[facility] Anesthesia Record Part I Intake, IV Amount: 1,000 Estimated blood loss (mL): 300 Urine output (mL): 0 Blood Pressure: 133/77 SaO2: 93 Pulse Rate: 120 Respiratory Rate: 16 Temperature: 99.4 F Patient is:: Drowsy, Stable Stable to PACU at:: 11:55
[2021-02-21 12:11] LABS: POC Glucose,Bedside 108 (70-110)
[2021-02-21 12:25] LABS: Hematocrit 32.3 % (37.0-47.0)
[2021-02-21 12:39] LABS: Hemoglobin 10.7 g/dL (12.2-16.2)
--- NOTE | 2021-02-21 12:40 | SUR.PHASEI ---
1204 FSBS performed with results of 108.
--- NOTE | 2021-02-21 14:17 | HMH.OPNOTE ---
Date of procedure: 02/21/21 Pre-op Diagnosis:: Stress urinary incontinence Post-op Diagnosis:: Stress urinary incontinence Procedure performed:: Transobturator tape placement with cystoscopy Surgeon:: Eleazar Mao MD TECHNICAL SUPPORT MANAGER:: Be Shafer Anesthesia: LMA Estimated blood loss (mL): 300 Clinical Note:: Patient is a 45-year-old white female with stress urinary incontinence. She presents for transobturator tape placement today. Risk and complications have been discussed at length. Operative findings:: Normal vaginal introitus, grade 1 cystocele is present. Transobturator tape was placed without difficulty. Was a little venous oozing from the left pelvic region with dissection. This was easily stopped with pressure and tenting of the surrounding regions. Operative note:: Patient taken to the operating room after informed consent was obtained. She was placed on the operating table and general anesthesia administered. She was then positioned into the dorsal lithotomy position and prepped and draped in the standard surgical fashion. A 16 Latvian Jain catheter was placed and the bladder emptied and the Jain clamped and placed onto the abdomen. A weighted vaginal speculum was placed. The thigh incisions were marked as well as the anterior vaginal wall with a marking pen. Local anesthetic placed in the each area of incision. Small stab incisions were made in the thigh below the insertion of the abductor longus and on a plane equal to the clitoris. Vaginal wall incision was then performed in the periurethral space was dissected with the Metzenbaum scissors and then bluntly with my finger palpating the underside of the ischio pubic ramus. There was some bleeding noted from the patient's left side and this appeared to be a little bit high around the ischio pubic ramus and could not be visualized. It did stop easily with tenting of the surrounding structures and pressure that did bleed during the procedure. The Obtryx ll Halo sling was used in the trocar placed around the patient's right ischio pubic ramus and guided through the vaginal incision on the finger. Cystoscopy then performed and there was no evidence of any bladder or urethral injury. Make sure also to make sure there was no vaginal fornix injury. The end of the tape was then placed on the end of the trocar and pulled back out through the thigh incision. We then placed the other trocar around the left ischio pubic ramus and out the vaginal incision guided by my finger. The other end of the tape was placed onto the trocar and it was pulled back out through the left-sided thigh incision. This did place some pressure on the tissues above and bleeding was minimal after this. The ends of the sling were cut off at the thigh and good placement was noted as the sling was flat against the proximal to mid urethra. The vaginal incision was then closed with a running 2-0 chromic and the thigh incisions closed with Dermabond. A gauze ribbon was then placed into the vagina for hemostasis purposes. It was impregnated with Premarin cream. Patient transported to the recovery room in stable condition. Condition: stable Disposition: PACU Specimens:: None Complications:: None
[2021-02-22 07:23] VITALS: BP 135/80; PULSE 112; TEMP 37.2
--- NOTE | 2021-02-22 07:23 | HMH.ANESII ---
[facility] Anesthesia Record Part II Discharge Time: 12:25 Destination: Surgical Day Care (OP Surgery) PACU nurse assessment reviewed?: Yes Patient Condition:: Good Anesthesia Complications:: None Swallowing reflex intact?: Yes Cyanosis?: No Blood Pressure: 135/80 Pulse Rate: 112 Temperature: 99 F Mental Status: Alert & Oriented Pain level:: 0 Nausea and/or vomitting:: None Intake, IV Amount: 0
== END 2021-02-21 13:15 | disposition home or self-care (01) ==
LOC: OR 08:09
PROVIDERS: PCP Internal Medicine Adolescent Medicine; Visit Provider Urology
PROC: (CPT 51992; principal; 2021-02-21 09:30)
DX: N39.3 Stress incontinence (female) (male) (principal); E11.9 Type 2 diabetes mellitus without complications; K21.9 Gastro-esophageal reflux disease without esophagitis; E78.5 Hyperlipidemia, unspecified; I10 Essential (primary) hypertension; G47.33 Obstructive sleep apnea (adult) (pediatric); Z87.440 Personal history of urinary (tract) infections; F41.9 Anxiety disorder, unspecified; F32.9 Major depressive disorder, single episode, unspecified; Z82.3 Family history of stroke; Z83.49 Family history of other endocrine, nutritional and metabolic diseases; Z82.49 Family history of ischemic heart disease and other diseases of the circulatory system
CPT/HCPCS: 51992; 36415; 80048; 82962; 85014; 85018; 85025; 96374; C1771; J2405

== ENCOUNTER → 2021-02-28 11:21 | Outpatient (CLI) | payer OTHER, SELFPAY ==
[2021-02-28 11:25] LABS: MANUAL DIFFERENTIAL MANUAL DIFFERENTIAL (MANUAL DIFF)
[2021-02-28 11:50] LABS: Basophils % 0.4 % (0.1-2.0); Eosinophils # 0.4 K/mm3 (0.0-0.4); Eosinophils % 4.4 % (0.1-12.0); Hemoglobin 11.3 g/dL (12.2-16.2); Lymphocytes # 2.5 K/mm3 (0.7-4.5); Lymphocytes % 25.5 % (10-50); Mean Corpuscular HGB Conc 33.2 g/dL (31.8-35.4); Mean Corpuscular Hemoglobin 26.9 pg (27.0-31.2); Mean Platelet Volume 7.9 fl (7.4-10.4); Monocytes # 0.7 K/mm3 (0.1-1.0); Neutrophils % 62.7 % (37.0-80.0); Platelet Count 338 K/mm3 (142-424); Red Blood Count 4.19 M/mm3 (4.20-5.40); Red Cell Distribution Width 16.6 % (11.5-17.5); White Blood Count 9.6 K/mm3 (4.8-10.8)
[2021-02-28 12:51] LABS: Anisocytosis 1+; Eosinophils % 6 % (0-3); Hypochromasia 1+; Lymphocytes % 23 % (10-50); Microcytosis 1+; Monocytes % 7 % (2-9); Neutrophils % 64 % (42-76); Platelet Estimate Normal; Total Cells Counted 100
[2021-02-28 14:11] LABS: Alanine Aminotransferase 12 U/L (12-78); Albumin Level 3.7 g/dl (3.5-5.0); Alkaline Phosphatase 89 U/L (38-126); Aspartate Amino Transferase 17 U/L (14-36); Bilirubin,Direct 0.6 mg/dl (0.0-0.4); Bilirubin,Indirect 0.2 mg/dL (0.0-0.9); Bilirubin,Total 0.8 mg/dl (0.2-1.3); Bilirubin,Unconjugated 0.2 mg/dL (0.0-1.1); Chol/HDL Ratio 3.7 (1-3.5); Cholesterol 148 mg/dl (140-200); HDL Cholesterol 40 mg/dl (40-60); Total Protein,Serum 6.6 g/dl (6.3-8.2); Triglycerides 267 mg/dl (30-150); VLDL Cholesterol 53 mg/dL (0-40)
[2021-02-28 14:29] LABS: Direct LDL Cholesterol 56.08 mg/dL (100-129)
== END ==
PROVIDERS: Urology; Visit Provider Urology
DX: I11.9 Hypertensive heart disease without heart failure (principal); E11.9 Type 2 diabetes mellitus without complications; R32 Unspecified urinary incontinence
CPT/HCPCS: 36415; 80061; 80076; 85007; 85014; 85018; 85048; 85049

== ENCOUNTER → 2021-03-28 09:23 | Outpatient (CLI) | payer OTHER, SELFPAY ==
--- NOTE | 2021-03-28 09:28 | FL_ITS ---
PROCEDURE: FL UPPER GI W AIR CLINICAL INDICATION: HEARBURN, GLOBUS SENSATION COMPARISON: No exams were available for comparison FINDINGS: Fluoroscopy time: 1 minutes and 8 seconds. There is a small sliding hiatal hernia. Mild GE reflux was noted during the exam.. The stomach has an unremarkable appearance. No evidence of duodenal or gastric ulcer. There is a medium size duodenal diverticulum measuring approximately 4 by 2 cm projecting superiorly from the junction of the descending and transverse portion of the duodenum. IMPRESSION: Small sliding hiatal hernia with mild GE reflux Medium size duodenal diverticulum Dictated by: Jay Mason MD 03/28/2021 13:59 Jay Mason MD in [place] 03/28/2021 13:59
== END ==
PROVIDERS: PCP Internal Medicine Adolescent Medicine; Visit Provider Nurse Practitioner Family
DX: R12 Heartburn (principal); R09.89 Other specified symptoms and signs involving the circulatory and respiratory systems
CPT/HCPCS: 74246

== ENCOUNTER → 2021-05-11 11:15 | Outpatient (CLI) | payer OTHER, SELFPAY | PROVIDERS: Visit Provider Surgery | DX: Z01.812 Encounter for preprocedural laboratory examination (principal); Z11.52 Encounter for screening for COVID-19; Z13.810 Encounter for screening for upper gastrointestinal disorder | CPT/HCPCS: C9803; U0003; U0005 ==

== ENCOUNTER 2021-05-12 09:19 | Day surgery (SDC) | payer OTHER, SELFPAY ==
[2021-05-10 11:00] VITALS: BMI 42.3
[2021-05-12 09:47] VITALS: BP 141/95; PULSE 92; RESP 20; TEMP 37; O2SAT 99
--- NOTE | 2021-05-12 10:27 | HMH.SCOPE ---
- Procedure: Date: 05/12/21 Patient Date of :: 1975 Procedure Performed:: Esophagogastroduodenoscopy with biopsy Indications:: Gastroesophageal reflux Dysphagia Impression from recent UGI series: Small sliding hiatal hernia with mild GE reflux Medium size duodenal diverticulum Performing Provider:: Freddy Rockwell MD Referring Provider:: . Sedation:: Monitored anesthesia care Procedure:: After informed consent was obtained the patient was taken to the endoscopy suite. Sedation ensued after the patient was transferred to the left lateral decubitus position. Pulse, blood pressure, and oxygen saturation were monitored throughout the procedure. The endoscope was advanced beyond the duodenal bulb. Retroflexion within the gastric lumen was accomplished. The gastroscope was carefully removed and the patient was transferred to recovery in stable condition. Please see findings and specimens below for detail. Findings:: Gastroesophageal junction at 32 cm Shallow linear distal esophageal ulceration Small to moderate sliding hiatal hernia Inflamed polypoid proximal gastric body lesion Moderate patchy gastritis with streaking gastritis distally Mild duodenitis Specimens:: Antral biopsy Biopsy of duodenal sweep Proximal gastric body polyp biopsy Recommendations:: Increase proton pump inhibition Follow-up pathology Repeat EGD in 6-8 weeks Complications:: No immediate Estimated blood obtained (mL): 1
[2021-05-12 10:34] VITALS: O2SAT 97
[2021-05-12 10:56] VITALS: BP 128/67; PULSE 99; RESP 16; TEMP 37; O2SAT 92
[2021-05-12 11:06] VITALS: BP 138/87; PULSE 89; RESP 16; TEMP 37; O2SAT 94
[2021-05-12 11:16] VITALS: BP 138/84; PULSE 86; RESP 16; O2SAT 94
[2021-05-12 11:26] VITALS: BP 141/90; PULSE 86; RESP 16; TEMP 36.9; O2SAT 95
--- NOTE | 2021-05-12 13:17 | HMH.ANESCL ---
[facility] Anesthesia Checklist - Patient Identification Patient Identification: Arm Band, Verbal (Name & ) - Structural Data Admitted From: Home Planned Operative Procedure/s: EGD Consent for Planned Operative Procedure(s) Verified: Yes Verified Documents: Surgical Consent - NPO Status Verified Time NPO: 00:00 - Additional verifications Anesthesia Reactions: No Hx Blood Transfusions: No Blood Transfusion Reaction: No - Cardiovascular Assessment Heart Sounds: S1 & S2 - Airway Assessment C-Spine Mobility Assessed: Yes TMJ Mobility Assessed: Yes Dentition: Good Dentition - Neurological Assessment Level of Consciousness: Awake, Alert, Appropriate - Anesthesia Plan Anesthesia Risk discussed: Yes ASA Class: II Anesthesia Type: General [facility] History I have reviewed the patient's past medical history: Yes Medical History: Reports:: Anxiety, Depression, Diabetes Mellitus Type 2, Gastroesophageal Reflux Disease(GERD), Hyperlipidemia, Hypertension, Lung Disease, Urinary Tract Infection Denies:: Cancer, Diabetes Mellitus Type 1, Internal Pacemaker, MRSA, Seizures *Have you ever received a pneumonia vaccine?: No *Have you received a flu vaccine this season?: Yes Other Medical History: Reports: Other. Denies: Blood Transfusion Reaction Anesthesia experience/problems:: no issues Laterality Cases: Right: Arthroscopy Shoulder, Bilateral: Other Other Surgeries: Yes: No Previous Surgery, Cardiac Catheterization, Colonoscopy, Hysterectomy-Total. No: Pacemaker Amputation: No Fractures: No - *Social History Last grade of school completed: High school graduate Smoking Status: Never smoker Tobacco Type: cigarettes Alcohol Intake: never Alcohol Intake Frequency:: other Substance Use Type: denies use *Occupational Status:: employed Housing: house Household Members: spouse *Travel in the last 8 weeks: None - Psychiatric History Pschychiatric History:: Reports:: Anxiety, Depression Family Hx:: Heart Attack, Hypertension, Thyroid Disorder
== END 2021-05-12 11:30 | disposition home or self-care (01) ==
LOC: OUTP 09:21
PROVIDERS: PCP Internal Medicine Adolescent Medicine; Visit Provider Surgery
PROC: 0DJ08ZZ Inspection of Upper Intestinal Tract, Via Natural or Artificial Opening Endoscopic (ICD-10-PCS; CPT 43235; principal; 2021-05-12 10:30)
DX: R13.10 Dysphagia, unspecified (principal); K21.9 Gastro-esophageal reflux disease without esophagitis; K22.10 Ulcer of esophagus without bleeding; K44.9 Diaphragmatic hernia without obstruction or gangrene; K31.7 Polyp of stomach and duodenum; K29.60 Other gastritis without bleeding; K57.10 Diverticulosis of small intestine without perforation or abscess without bleeding; E11.9 Type 2 diabetes mellitus without complications; E78.5 Hyperlipidemia, unspecified; I10 Essential (primary) hypertension; J84.9 Interstitial pulmonary disease, unspecified; Z88.1 Allergy status to other antibiotic agents; Z79.899 Other long term (current) drug therapy
CPT/HCPCS: 43239

== ENCOUNTER 2021-05-25 13:12 | Outpatient (CLI) | payer OTHER, SELFPAY ==
[2021-05-25 13:15] VITALS: BP 107/70; PULSE 80; RESP 17; TEMP 36.4; O2SAT 98
[2021-05-25 13:34] VITALS: BMI 39.3
[2021-05-25 13:55] LABS: Basophils % 0.3 % (0.1-2.0); Eosinophils # 0.1 K/mm3 (0.0-0.4); Eosinophils % 0.8 % (0.1-12.0); Hematocrit 38.4 % (37.0-47.0); Hemoglobin 12.4 g/dL (12.2-16.2); Lymphocytes # 2.7 K/mm3 (0.7-4.5); Lymphocytes % 23.2 % (10-50); Mean Corpuscular HGB Conc 32.3 g/dL (31.8-35.4); Mean Corpuscular Hemoglobin 26.2 pg (27.0-31.2); Mean Corpuscular Volume 81.2 fl (81-99); Mean Platelet Volume 8.7 fl (7.4-10.4); Monocytes # 0.7 K/mm3 (0.1-1.0); Monocytes % 5.7 % (1.7-9.3); Neutrophils # 8.2 K/mm3 (1.8-7.8); Neutrophils % 69.9 % (37.0-80.0); Platelet Count 427 K/mm3 (142-424); Red Blood Count 4.73 M/mm3 (4.20-5.40); White Blood Count 11.7 K/mm3 (4.8-10.8)
[2021-05-25 14:00] LABS: Chloride 99 mmol/L (98-107); Potassium 3.6 mmoL/L (3.5-5.1); Sodium 137 mmol/L (136-145)
[2021-05-25 14:02] LABS: Alanine Aminotransferase 18 U/L (12-78); Aspartate Amino Transferase 27 U/L (14-36); Blood Urea Nitrogen 16 mg/dl (7-17); Creatinine Clearance Estimated 78 mL/min (50-200); Estimated Glomerular Filt Rate 41 ml/min (>60); GFR (African American) 49 ML/MIN (>60)
[2021-05-25 14:03] LABS: Albumin Level 4.3 g/dl (3.5-5.0); Albumin/Globulin Ratio 1.3 (1.1-1.8); Alkaline Phosphatase 91 U/L (38-126); Anion Gap 13.6 mEq/L (5-15); Bilirubin,Total 1.1 mg/dl (0.2-1.3); Calcium 9.4 mg/dl (8.4-10.2); Carbon Dioxide 28 mmol/L (22.0-30.0); Globulin 3.3 g/dL (1.3-3.2); Glucose 111 mg/dl (74-100); Total Protein,Serum 7.6 g/dl (6.3-8.2)
[2021-05-25 14:16] LABS: Hemoglobin A1C 5.5 % (4.0-6.0)
[2021-05-25 14:27] VITALS: BP 119/83; BP 125/72; BP 127/82; PULSE 74; PULSE 78; PULSE 86
[2021-05-25 14:31] VITALS: BP 127/82; PULSE 86; RESP 17; O2SAT 98
[2021-05-25 14:34] LABS: Thyroid Stimulating Hormone 1.01 uIU/mL (0.465-4.68)
== END 2021-05-25 14:35 | disposition home or self-care (01) ==
LOC: INF 13:13
PROVIDERS: PCP Internal Medicine Adolescent Medicine; Visit Provider Nurse Practitioner Family
DX: I95.1 Orthostatic hypotension (principal); E11.9 Type 2 diabetes mellitus without complications; Z79.84 Long term (current) use of oral hypoglycemic drugs; E86.0 Dehydration
CPT/HCPCS: 80053; 83036; 84443; 85025; 96360

== ENCOUNTER → 2021-05-31 13:03 | Outpatient (CLI) | payer OTHER, SELFPAY ==
--- NOTE | 2021-05-31 13:03 | FL_ITS ---
PROCEDURE: FL BARIUM SWALLOW MODIFIED CLINICAL INDICATION: Dysphagia COMPARISON: No exams were available for comparison TECHNIQUE: Patient administered varying consistencies of barium contrast, while viewed in lateral position under real-time fluoroscopy with cine recording. FLUOROSCOPY TIME:Fluoroscopy time: 1.03 minutes The study was performed in conjunction with speech pathologist. Please see that report & recommendations. FINDINGS: Patient was given varying consistencies of barium. No impairment evident. No aspiration or penetration IMPRESSION: Unremarkable modified barium swallow. Please see speech pathologist report and recommendations. Dictated by: Jay Mason MD 06/01/2021 14:09 Jay Mason MD in [place] 06/01/2021 14:09
--- NOTE | 2021-05-31 14:38 | HMH.SLMBS2 ---
Speech & Language Evaluation Speech/Language Mod Barium Swallow Start: 05/31/21 14:30 Freq: once Status: Complete Protocol: Document 05/31/21 14:30 JANENE (Rec: 05/31/21 14:37 JANENE [id number]) General Information General Current Food Consistancy Regular,Thin Liquids Dentition Good Dentition Oxygen Status Room Air Facial Symmetry Symmetrical Patient Orientation Person,Place,Time,Situation Ability to Follow Directions Excellent Communication Ability No Impairment MBS Recommendations Diet Dietary Recommendations Regular,Thin Liquids Treatment/Strategies Strategy/Precaution Recommend Sitting Upright (90 deg),Small Bites and Sips,Alternate Liquids/Solids Mod Barium Swallow Impressions Summary and Impressions Oral Phase Impression No Impairment (WFL) Oral Phase Summary Ms. Hillman was given the following consistencies: thins via straw and open cup, pudding, pureed, mechanical soft, regular, and pill with thin wash. No oral phase impairments noted. Pharyngeal Phase Impression No Impairment (WFL) Pharyngeal Phase Summary No impairments in the pharyngeal phase noted during evaluation. Ms. Hillman did cough with mechanical soft and pill with thin wash but no penetration or aspiration noted. Speech/Language MBS Assessment/Goals/Plan Assessment Date of Evaluation: 05/31/21 Evaluation Type Initial Certification Assessment/Problems Dysphagia Does Patient Qualify for Service No Qualify/Failure Comment No signs of dysphagia noted during evaluation. Recommendations PHYSICIAN CERTIFICATION: The specified therapy services are required, authorized, and reviewed every 30 days. Diet Recommendations Normal Liquid Type Recommendations Normal/Thin SL Swallow Guidelines Standard Aspiration Prec. Dysphagia Swallow Precautions/Strategies Sitting Upright (90 deg),Small Bites and Sips,Alternate Liquids/Solids Plan Pt/Guardian verbally ack understanding Yes of dx/prognosis/goals G -code Required No Mod Barium Swallow Setup Exam Setup Radiologist Jay Mason Level of Consciousness Awake,Alert,Appropriate, Follows Commands Position (degrees) 90 Mod Barium Swallow-Lat View Textures
== END ==
PROVIDERS: PCP Internal Medicine Adolescent Medicine; Visit Provider Surgery
DX: R13.10 Dysphagia, unspecified (principal)
CPT/HCPCS: 70371; 92611

== ENCOUNTER → 2021-06-01 10:20 | Outpatient (CLI) | payer OTHER, SELFPAY ==
[2021-06-02 14:11] LABS: Tissue Transglutaminase IgA Ab 15 U/mL (0-3); Tissue Transglutaminase IgG Ab 33 U/mL (0-5)
== END ==
PROVIDERS: Visit Provider Surgery
DX: K22.10 Ulcer of esophagus without bleeding (principal)
CPT/HCPCS: 36415; 83516

== ENCOUNTER → 2021-06-02 11:43 | Outpatient (CLI) | payer OTHER, SELFPAY ==
[2021-06-02 13:10] LABS: Anion Gap 12.7 mEq/L (5-15); Blood Urea Nitrogen 18 mg/dl (7-17); Calcium 9.2 mg/dl (8.4-10.2); Carbon Dioxide 26 mmol/L (22.0-30.0); Chloride 104 mmol/L (98-107); Estimated Glomerular Filt Rate 68 ml/min (>60); GFR (African American) 82 ML/MIN (>60); Glucose 156 mg/dl (74-100); Potassium 3.7 mmoL/L (3.5-5.1); Sodium 139 mmol/L (136-145)
== END ==
PROVIDERS: Visit Provider Nurse Practitioner Family
DX: R79.89 Other specified abnormal findings of blood chemistry (principal)
CPT/HCPCS: 36415; 80048

== ENCOUNTER → 2021-06-28 10:54 | Outpatient (CLI) | payer OTHER, SELFPAY | PROVIDERS: Visit Provider Surgery | DX: Z01.812 Encounter for preprocedural laboratory examination (principal); Z11.52 Encounter for screening for COVID-19; Z13.810 Encounter for screening for upper gastrointestinal disorder | CPT/HCPCS: C9803; U0003; U0005 ==

== ENCOUNTER 2021-06-30 12:24 | Day surgery (SDC) | payer OTHER, SELFPAY ==
[2021-06-30 12:40] VITALS: BP 149/87; PULSE 98; RESP 18; TEMP 37.1; O2SAT 99; BMI 40.2
[2021-06-30 13:33] VITALS: O2SAT 99
--- NOTE | 2021-06-30 13:49 | HMH.SCOPE ---
- Procedure: Date: 06/30/21 Patient Date of :: 1975 Procedure Performed:: Esophagogastroduodenoscopy with biopsy Indications:: Distal esophageal ulceration Celiac disease Performing Provider:: Freddy Rockwell MD Referring Provider:: . Sedation:: Monitored anesthesia care Procedure:: After informed consent was obtained the patient was taken to the endoscopy suite. Sedation ensued after the patient was transferred to the left lateral decubitus position. Pulse, blood pressure, and oxygen saturation were monitored throughout the procedure. The endoscope was advanced beyond the duodenal bulb. Retroflexion within the gastric lumen was accomplished. The gastroscope was carefully removed and the patient was transferred to recovery in stable condition. Please see findings and specimens below for detail. Findings:: Unchanged sliding hiatal hernia Linear inflammatory changes along distal esophagus remain; however, ulcerations healed Patchy gastritis Specimens:: Antral biopsy Distal esophageal biopsy Recommendations:: Follow-up pathology Continue gluten-free diet Continue proton pump inhibition Complications:: No immediate Estimated blood obtained (mL): 1
[2021-06-30 13:52] VITALS: BP 144/90; PULSE 107; RESP 16; TEMP 36.8; O2SAT 96
--- NOTE | 2021-06-30 14:00 | HMH.ANESCL ---
[facility] Anesthesia Checklist - Structural Data Admitted From: Home Planned Operative Procedure/s: egd Consent for Planned Operative Procedure(s) Verified: Yes - Additional verifications Anesthesia Reactions: No Hx Blood Transfusions: No Blood Transfusion Reaction: No - Airway Assessment C-Spine Mobility Assessed: Yes TMJ Mobility Assessed: Yes Dentition: Good Dentition - Neurological Assessment Level of Consciousness: Awake, Alert, Appropriate - Anesthesia Plan Anesthesia Risk discussed: Yes Anesthesia Plan: Verified ASA Class: III Anesthesia Type: MAC [facility] History I have reviewed the patient's past medical history: Yes Medical History: Reports:: Anxiety, Depression, Diabetes Mellitus Type 2, Gastroesophageal Reflux Disease(GERD), Hyperlipidemia, Hypertension, Lung Disease, Urinary Tract Infection Denies:: Cancer, Diabetes Mellitus Type 1, Internal Pacemaker, MRSA, Seizures *Have you ever received a pneumonia vaccine?: No *Have you received a flu vaccine this season?: Yes Other Medical History: Reports: Other. Denies: Blood Transfusion Reaction Anesthesia experience/problems:: none Laterality Cases: Right: Arthroscopy Shoulder, Bilateral: Other Other Surgeries: Yes: No Previous Surgery, Cardiac Catheterization, Colonoscopy, EGD, Hysterectomy-Total. No: Pacemaker Amputation: No Fractures: No - *Social History Last grade of school completed: High school graduate Smoking Status: Never smoker Tobacco Type: cigarettes Alcohol Intake: never Alcohol Intake Frequency:: other Substance Use Type: denies use *Occupational Status:: unemployed Housing: house Household Members: spouse *Travel in the last 8 weeks: None - Psychiatric History Pschychiatric History:: Reports:: Anxiety, Depression Family Hx:: Coronary Artery Disease, Hypertension
[2021-06-30 14:02] VITALS: BP 157/88; PULSE 102; RESP 16; O2SAT 98
[2021-06-30 14:12] VITALS: BP 140/76; PULSE 102; RESP 16; O2SAT 97
[2021-06-30 14:22] VITALS: BP 144/78; PULSE 98; RESP 16; O2SAT 100
[2022-04-13 10:55] LABS: POC Glucose,Bedside 88 (70-110)
== END 2021-06-30 14:22 | disposition home or self-care (01) ==
LOC: OUTP 12:25
PROVIDERS: PCP Internal Medicine Adolescent Medicine; Visit Provider Surgery
PROC: 0DJ08ZZ Inspection of Upper Intestinal Tract, Via Natural or Artificial Opening Endoscopic (ICD-10-PCS; CPT 43235; principal; 2021-06-30 13:30)
DX: K22.10 Ulcer of esophagus without bleeding (principal); K90.0 Celiac disease; K44.9 Diaphragmatic hernia without obstruction or gangrene; K29.70 Gastritis, unspecified, without bleeding; F41.9 Anxiety disorder, unspecified; F32.A Depression, unspecified; E11.9 Type 2 diabetes mellitus without complications; K21.9 Gastro-esophageal reflux disease without esophagitis; E78.5 Hyperlipidemia, unspecified; I10 Essential (primary) hypertension; J98.4 Other disorders of lung; Z87.440 Personal history of urinary (tract) infections
CPT/HCPCS: 43239; 82962

== ENCOUNTER → 2021-10-12 14:14 | Outpatient (CLI) | payer OTHER, SELFPAY ==
[2021-10-12 15:43] LABS: Basophils % 0.5 % (0.1-2.0); Eosinophils # 0.4 K/mm3 (0.0-0.4); Eosinophils % 4.6 % (0.1-12.0); Hematocrit 37.3 % (37.0-47.0); Hemoglobin 12.5 g/dL (12.2-16.2); Lymphocytes % 37.3 % (10-50); Mean Corpuscular HGB Conc 33.4 g/dL (31.8-35.4); Mean Corpuscular Hemoglobin 29.3 pg (27.0-31.2); Mean Corpuscular Volume 87.6 fl (81-99); Monocytes # 0.5 K/mm3 (0.1-1.0); Monocytes % 6.5 % (1.7-9.3); Neutrophils # 4.1 K/mm3 (1.8-7.8); Neutrophils % 51.1 % (37.0-80.0); Platelet Count 288 K/mm3 (142-424); Red Blood Count 4.26 M/mm3 (4.20-5.40); Red Cell Distribution Width 15.4 % (11.5-17.5); White Blood Count 8.1 K/mm3 (4.8-10.8)
[2021-10-12 16:36] LABS: Free T4 (Free Thyroxine) 0.88 ng/dl (0.78-2.19)
[2021-10-12 16:50] LABS: Thyroid Stimulating Hormone 0.84 uIU/mL (0.465-4.68)
== END ==
PROVIDERS: Visit Provider Dermatology
DX: L98.1 Factitial dermatitis (principal); L81.4 Other melanin hyperpigmentation; L20.89 Other atopic dermatitis; L82.1 Other seborrheic keratosis; L30.4 Erythema intertrigo; L85.3 Xerosis cutis
CPT/HCPCS: 36415; 84439; 84443; 85025

== ENCOUNTER → 2022-02-24 10:48 | Outpatient (CLI) | payer OTHER, SELFPAY ==
[2022-02-24 11:24] LABS: Basophils # 0.1 K/mm3 (0-0.2); Basophils % 0.9 % (0.1-2.0); Eosinophils # 0.3 K/mm3 (0.0-0.4); Eosinophils % 3.2 % (0.1-12.0); Hematocrit 43.9 % (37.0-47.0); Hemoglobin 13.7 g/dL (12.2-16.2); Lymphocytes % 36.5 % (10-50); Mean Corpuscular HGB Conc 31.3 g/dL (31.8-35.4); Mean Corpuscular Hemoglobin 28.3 pg (27.0-31.2); Mean Corpuscular Volume 90.5 fl (81-99); Mean Platelet Volume 8.9 fl (7.4-10.4); Monocytes # 0.6 K/mm3 (0.1-1.0); Monocytes % 6.9 % (1.7-9.3); Neutrophils # 4.4 K/mm3 (1.8-7.8); Neutrophils % 52.5 % (37.0-80.0); Platelet Count 297 K/mm3 (142-424); Red Blood Count 4.85 M/mm3 (4.20-5.40); Red Cell Distribution Width 14.6 % (11.5-17.5); White Blood Count 8.3 K/mm3 (4.8-10.8)
[2022-02-24 11:56] LABS: Free T4 (Free Thyroxine) 0.75 ng/dl (0.78-2.19)
== END ==
PROVIDERS: PCP Internal Medicine Adolescent Medicine; Visit Provider Dermatology
DX: Z79.899 Other long term (current) drug therapy (principal)
CPT/HCPCS: 36415; 84439; 84443; 85025

== ENCOUNTER → 2022-08-07 13:17 | Outpatient (CLI) | payer OTHER, SELFPAY ==
--- NOTE | 2022-08-07 13:24 | XR_ITS ---
FINAL REPORT CLINICAL HISTORY: LT FOOT PAIN,PAIN DUE TO TRAUMA COMPARISON: June 2020 FINDINGS: AP, oblique and lateral views of the left foot were obtained. There is no prior exam for comparison. There is no acute fracture or dislocation. The joint spaces are preserved. Soft tissues are normal. IMPRESSION: No acute osseous abnormality of the left foot. Reviewed, Interpreted and Dictated by Yokasta Barahona MD Transcribed by Saúl Meyer Authenticated and [facility]
== END ==
PROVIDERS: PCP Nurse Practitioner Family; Visit Provider Nurse Practitioner Family
DX: M79.672 Pain in left foot (principal); G89.11 Acute pain due to trauma
CPT/HCPCS: 73630

== ENCOUNTER → 2022-09-13 13:10 | Outpatient (CLI) | payer OTHER, SELFPAY ==
--- NOTE | 2022-09-13 13:13 | MM_ITS ---
PROCEDURE INFORMATION: Exam: MG Bilateral Screening 3D Mammography Exam date and time: 09/13/2022 1:13 PM Age: 47 years old Clinical indication: Screening mammogram TECHNIQUE: Imaging protocol: Bilateral Screening tomosynthesis and 2D mammography including computer-aided detection (CAD) when performed. COMPARISON: 1. MG MM DIG MAMM BI DX W/CAD 09/27/2020 2:00 PM 2. MG MM DIG SCREENING MAMM BI W/CAD 02/27/2020 4:08 PM 3. MG MM DIG MAMM DX UNILAT RT CAD 02/21/2019 3:04 PM 4. MG DXRT MM Dig mamm DX unilat RT CAD 09/13/2018 1:14 PM FINDINGS: MAMMOGRAPHY: Breast composition: There are scattered areas of fibroglandular density. Mass: None. Architectural distortion: No new or suspicious architectural distortion. Calcifications: No new or suspicious calcifications are present Asymmetric density: No new or suspicious asymmetric density is present Skin thickening: None. Axillary adenopathy: None. IMPRESSION: No mammographic evidence of malignancy. Recommend annual screening mammography unless otherwise clinically indicated. ASSESSMENT: BI-RADS category 1: Negative
== END ==
PROVIDERS: PCP Nurse Practitioner Family; Visit Provider Nurse Practitioner Family
DX: Z12.31 Encounter for screening mammogram for malignant neoplasm of breast (principal)
CPT/HCPCS: 77063; 77067

== ENCOUNTER 2022-10-11 20:57 | Emergency (ER) | payer OTHER, SELFPAY ==
--- NOTE | 2022-10-11 20:54 | ECG_ITS ---
APPROVED REPORT Exam: Resting ECG HR:103 bpm ECG Measurements Heart Rate 103 AXES TX 144 P 43 QRSd 95 QRS 64 QT 340 T 0 QTc 399 Conclusion SINUS TACHYCARDIA NONSPECIFIC T-WAVE ABNORMALITY ABNORMAL RHYTHM ECG UNCONFIRMED REPORT Electronically signed by : Abner Baca MD 10/13/2022 02:54:47
[2022-10-11 20:57] VITALS: BP 191/131; PULSE 104; RESP 16; TEMP 36.4; O2SAT 98; BMI 43.9
[2022-10-11 20:58] VITALS: BMI 43.9
--- NOTE | 2022-10-11 20:59 | XR_ITS ---
PROCEDURE INFORMATION: Exam: XR Chest Exam date and time: 10/11/2022 8:58 PM Age: 47 years old Clinical indication: Sternal or substernal pain; Additional info: Cp TECHNIQUE: Imaging protocol: Radiologic exam of the chest. Views: 2 views. COMPARISON: CR XR CHEST 2V 09/03/2019 3:55 PM FINDINGS: Lungs: Unremarkable. No consolidation. Pleural spaces: Unremarkable. No pleural effusion. No pneumothorax. Heart/Mediastinum: Unremarkable. No cardiomegaly. Bones/joints: Unremarkable. IMPRESSION: No acute findings.
[2022-10-11 21:18] LABS: Basophils # 0.1 K/mm3 (0-0.2); Basophils % 0.9 % (0.1-2.0); Eosinophils # 0.3 K/mm3 (0.0-0.4); Eosinophils % 2.2 % (0.1-12.0); Hematocrit 41.4 % (37.0-47.0); Hemoglobin 13.3 g/dL (12.2-16.2); Lymphocytes # 4.8 K/mm3 (0.7-4.5); Lymphocytes % 38.7 % (10-50); Mean Corpuscular HGB Conc 32.1 g/dL (31.8-35.4); Mean Corpuscular Volume 90.4 fl (81-99); Mean Platelet Volume 8.3 fl (7.4-10.4); Monocytes # 0.6 K/mm3 (0.1-1.0); Monocytes % 4.8 % (1.7-9.3); Neutrophils # 6.6 K/mm3 (1.8-7.8); Neutrophils % 53.4 % (37.0-80.0); Platelet Count 349 K/mm3 (142-424); Red Blood Count 4.57 M/mm3 (4.20-5.40); Red Cell Distribution Width 13.9 % (11.5-17.5); White Blood Count 12.4 K/mm3 (4.8-10.8)
[2022-10-11 21:24] LABS: Microscopic, Urine URINE MICROSCOPIC (MICROSCOPIC)
[2022-10-11 21:25] LABS: Chloride 104 mmol/L (98-107); Potassium 3.2 mmoL/L (3.5-5.1); Sodium 145 mmol/L (136-145)
[2022-10-11 21:26] LABS: Appearance,Urine CLEAR (Clear); Bilirubin,Urine Negative (Negative); Blood, Urine TRACE-I (Negative); Color,Urine YELLOW (Yellow); Glucose,Urine (UA) Negative (Negative); Ketones,Urine Negative (Negative); Leukocyte Esterase,Urine Negative (Negative); Nitrate,Urine Negative (Negative); Protein,Urine 2+ (Negative); Specific Gravity, Urine 1.015 (1.005-1.030); Urobilinogen,Urine 0.2 EU/dl (0.2)
[2022-10-11 21:28] LABS: Blood Urea Nitrogen 13 mg/dl (7-17); Creatinine Clearance Estimated 62 mL/min (50-200); Estimated Glomerular Filt Rate 67 ml/min (>60); GFR (African American) 82 ML/MIN (>60)
[2022-10-11 21:29] LABS: Anion Gap 17.2 mEq/L (5-15); Carbon Dioxide 27 mmol/L (22.0-30.0); Glucose 126 mg/dl (74-100)
[2022-10-11 21:30] VITALS: BP 209/120; PULSE 94; O2SAT 98
[2022-10-11 21:30] LABS: Urine Pregnancy, HCG Qual. Negative (Negative)
[2022-10-11 21:38] LABS: RBC,Urine Occasional #/hpf (0-3)
[2022-10-11 21:41] LABS: Troponin I < 0.01 ng/ml (0.00-0.034)
--- NOTE | 2022-10-11 23:27 | HMH.EDCP ---
Discharge Plan Disposition Patient Disposition: Home, Self-Care Chief Complaint: Chest Pain Prescriptions Prescriptions: No Action omeprazole 20 mg capsule,delayed release(DR/EC) 40 mg PO DAILY meloxicam 15 mg tablet 15 mg PO DAILY metformin 500 mg tablet 500 mg PO QHS hydralazine 10 mg tablet 10 mg PO ONCE esomeprazole magnesium [Nexium] 20 mg capsule,delayed release(DR/EC) 40 mg PO DAILY Rx Instructions: 40 mg PO hs; loratadine 10 mg capsule 10 mg PO QDAY citalopram 10 mg tablet 20 mg PO QDAY bupropion HCl 150 mg tablet extended release 12 hr 150 mg PO QDAY fluticasone propionate [Flonase Allergy Relief] 50 mcg/actuation spray,suspension 50 mcg INTRANASAL DAILY PRN (Reason: allergies) estradiol 0.5 mg tablet 0.5 mg PO DAILY amlodipine 10 mg tablet 10 mg PO DAILY Label Comments: TAKE ONE TABLET BY MOUTH EVERY DAY aspirin [Adult Low Dose Aspirin] 81 mg tablet,delayed release (DR/EC) 81 mg PO DAILY lisinopril-hydrochlorothiazide 20-12.5 mg tablet 1 tab PO BID Qty: 60 5RF Toviaz 4 mg tablet extended release 24 hr 4 mg PO DAILY Qty: 30 6RF tolterodine 4 mg capsule,extended release 24hr 4 mg PO DAILY Qty: 90 3RF oxybutynin chloride 10 mg tablet extended release 24hr 10 mg PO DAILY Qty: 90 3RF peg 3350-electrolytes [Golytely] 236-22.74-6.74 -5.86 gram recon soln 240 ml PO Q10M Qty: 4000 0RF Rx Instructions: until fecal effluent is clear carvedilol 25 MG tablet 25 mg PO DAILY Rx Instructions: Take 1 & ONE-HALF TABLET BY MOUTH TWICE DAILY chlorthalidone 25 MG tablet 25 mg PO BID ferrous sulfate 325 MG tablet 325 mg PO DAILY gabapentin 100 MG capsule 100 mg PO DAILY losartan 100 MG tablet 100 mg PO DAILY fesoterodine 4 MG tablet extended release 24 hr 4 mg PO DAILY atorvastatin 40 MG tablet 80 mg PO DAILY ibuprofen 800 MG tablet 800 mg PO Q8HP PRN (Reason: Moderate Pain) Qty: 30 0RF Referrals Follow up/Referrals: Debbi Gaffney APRN [Primary Care Provider] - See instructions Bhupinder Feliz MD [Staff Physician] - See instructions Clinical Impressions Clinical Impression: Chest pain, Hypertensive urgency Instructions Patient Instructions: DI for Chest Pain Discharge ED Provider: Elroy (ED)Johnnie Chest Pain HPI General Chief Complaint: Chest Pain Stated Complaint: cp Time Seen by Provider: 10/11/22 23:27 Mode of Arrival: Ambulatory Source of Information: Patient, Spouse and Medical Record Limitations: No Limitations Description of Symptoms (Recalled from ER Triage Doc. by RN): pt c/o midsternal chest heaviness since 2pm. History of Present Illness HPI narrative: chest tightness and elevated bp- pt has hx of elevated bp and MD complaint: chest pain indicative of cardiac Onset (ago): hour(s) Duration: intermittent Pain location: substernal Severity: moderate Quality: tightness Risk Factors for CAD: Hypertension, Family Hx of CAD and Diabetes Treatments prior to or on arrival for Cardiac Chest Pain: none AN Score for Non-Stemi Age of Patient: 40-49 years old Heart Rate: 90-109 bpm Systolic Blood Pressure: 200 mmhg or higher Serum Creatinine: 0.80-1.19 mg/dl CHF [place] Class: I-No CHF Other Risk Factors: None Non-Stemi Risk Score: 47 Risk Stratification: 1-108 = Low Risk Related Data Prior Cardiac Testing/Procedures: Stress Test On Oral Contraceptives: No Home Medications Medication Instructions Recorded Confirmed bupropion HCl 150 mg tablet,12 hr 150 mg PO QDAY Depression 08/09/17 07/06/21 sustained-release citalopram 10 mg tablet 20 mg PO QDAY Depression 08/09/17 07/06/21 loratadine 10 mg capsule 10 mg PO QDAY alleries 08/09/17 07/06/21 fluticasone propionate 50 50 mcg intranasal DAILY PRN 11/13/17 07/06/21 mcg/actuation nasal allergies spray,suspension (Flonase Allergy Relief) me
[2022-10-11 23:29] VITALS: BP 195/113; PULSE 97; O2SAT 97
[2022-10-11 23:30] VITALS: BP 180/110; PULSE 95; O2SAT 98
[2022-10-12 00:05] LABS: Troponin I < 0.01 ng/ml (0.00-0.034)
[2022-10-12 01:02] VITALS: BP 195/105; PULSE 91; PULSE 97; RESP 16; TEMP 36.4; O2SAT 98
== END 2022-10-12 01:04 | disposition home or self-care (01) ==
PROVIDERS: Emergency Provider Emergency Medicine; PCP Nurse Practitioner Family
DX: R07.9 Chest pain, unspecified (principal); I16.0 Hypertensive urgency; E87.6 Hypokalemia; R00.0 Tachycardia, unspecified; I11.9 Hypertensive heart disease without heart failure
CPT/HCPCS: 71046; 80048; 81001; 81025; 84484; 85025; 93005; 99284; 99285

== ENCOUNTER → 2022-10-23 15:21 | Outpatient (CLI) | payer OTHER, SELFPAY ==
[2022-10-23 17:03] LABS: Chloride 102 mmol/L (98-107); Sodium 138 mmol/L (136-145)
[2022-10-23 17:04] LABS: Potassium 4.2 mmoL/L (3.5-5.1)
[2022-10-23 17:07] LABS: Blood Urea Nitrogen 16 mg/dl (7-17); Calcium 8.5 mg/dl (8.4-10.2); Estimated Glomerular Filt Rate 67 ml/min (>60); GFR (African American) 82 ML/MIN (>60); Glucose 108 mg/dl (74-100)
[2022-10-23 17:18] LABS: Anion Gap 13.2 mEq/L (5-15); Carbon Dioxide 27 mmol/L (22.0-30.0)
== END ==
PROVIDERS: PCP Internal Medicine Adolescent Medicine; Visit Provider Nurse Practitioner Family
DX: I11.9 Hypertensive heart disease without heart failure (principal)
CPT/HCPCS: 36415; 80048

== ENCOUNTER 2022-11-01 14:18 | Emergency (ER) | payer OTHER, SELFPAY ==
[2022-11-01 14:18] VITALS: BP 182/116; PULSE 96; RESP 17; TEMP 36.6; O2SAT 97; BMI 33.3
--- NOTE | 2022-11-01 14:42 | ECG_ITS ---
APPROVED REPORT Exam: Resting ECG HR:93 bpm ECG Measurements Heart Rate 93 AXES MA 181 P 61 QRSd 96 QRS 60 QT 372 T 42 QTc 423 Conclusion SINUS RHYTHM NONSPECIFIC T-WAVE ABNORMALITY BORDERLINE ECG UNCONFIRMED REPORT Electronically signed by : Abner Baca MD 11/03/2022 14:24:51
--- NOTE | 2022-11-01 14:48 | XR_ITS ---
FINAL REPORT CLINICAL HISTORY: high blood pressure FINDINGS: Two views of the chest were obtained. The heart size and pulmonary vascularity are within normal limits. The mediastinum is normal. No acute pulmonary abnormality is identified. There is no pneumothorax. The bony thorax is intact. IMPRESSION: No active cardiopulmonary disease. Reviewed, Interpreted and Dictated by Hector Hawk III, MD Transcribed by Hannah Hillman Authenticated and [facility]
[2022-11-01 15:00] VITALS: BP 191/116; PULSE 99
--- NOTE | 2022-11-01 15:16 | PC.NURSE ---
Per attending, we will cancel cardiac workup because patient is symptom free. Labs were canceled
--- NOTE | 2022-11-01 15:16 | HMH.EDGENADL ---
Discharge Plan Disposition Patient Disposition: Home, Self-Care Condition: Good Prescriptions Prescriptions: No Action buspirone 5 mg tablet 5 mg PO BID Label Comments: TAKE ONE TABLET BY MOUTH TWICE DAILY metformin 500 mg tablet 500 mg PO DAILY Label Comments: TAKE ONE TABLET BY MOUTH EVERY DAY atorvastatin 80 mg tablet 80 mg PO DAILY Label Comments: TAKE ONE TABLET BY MOUTH EVERY DAY carvedilol 25 mg tablet 50 mg PO BID Label Comments: TAKE TWO TABLETS BY MOUTH TWICE DAILY cetirizine 10 mg tablet 10 mg PO DAILY Label Comments: TAKE ONE TABLET BY MOUTH EVERY DAY oxybutynin chloride 10 mg tablet extended release 24hr 10 mg PO DAILY Label Comments: TAKE ONE TABLET BY MOUTH EVERY DAY famotidine 40 mg tablet 40 mg PO DAILY Label Comments: TAKE ONE TABLET BY MOUTH EVERY DAY AT night potassium chloride 10 mEq tablet extended release 10 meq PO DAILY Label Comments: TAKE ONE TABLET BY MOUTH EVERY DAY chlorthalidone 25 mg tablet 25 mg PO DAILY Label Comments: TAKE ONE TABLET BY MOUTH EVERY DAY omeprazole 40 mg capsule,delayed release(DR/EC) 40 mg PO DAILY Label Comments: TAKE ONE CAPSULE BY MOUTH EVERY DAY aspirin 81 mg tablet,delayed release (DR/EC) 81 mg PO DAILY Label Comments: TAKE ONE TABLET BY MOUTH EVERY DAY citalopram 20 mg tablet 20 mg PO DAILY Label Comments: TAKE ONE TABLET BY MOUTH EVERY DAY imiquimod 5 % cream in packet 1 applic TOPICAL DAILY amlodipine 10 mg tablet 10 mg PO DAILY Label Comments: TAKE ONE TABLET BY MOUTH EVERY DAY ferrous sulfate [FeroSul] 325 mg (65 mg iron) tablet 325 mg PO DAILY Label Comments: TAKE ONE TABLET BY MOUTH EVERY DAY fluticasone propionate [Flovent HFA] 220 mcg/actuation HFA aerosol inhaler 2 puff INHALATION Q4-6H PRN (Reason: Breathing Problems) hydrochlorothiazide 25 mg tablet 25 mg PO DAILY Label Comments: TAKE ONE TABLET BY MOUTH EVERY DAY gabapentin 100 mg capsule 100 mg PO BID Label Comments: TAKE ONE CAPSULE BY MOUTH TWICE DAILY MAY CAUSE DROWSINESS estradiol 0.5 mg tablet 0.5 mg PO DAILY Label Comments: TAKE ONE TABLET BY MOUTH EVERY DAY azelastine 137 mcg (0.1 %) aerosol,spray 2 spray INTRANASAL BID PRN (Reason: Allergic Rhinitis) Label Comments: instill 1 TO 2 SPRAYS IN EACH NOSTRIL TWICE DAILY NEEDED FOR nasal allergies albuterol sulfate [Ventolin HFA] 90 mcg/actuation HFA aerosol inhaler 2 inh INHALATION Q4-6H PRN (Reason: Breathing Problems) hydrocortisone 2.5 % ointment 1 applic TOPICAL DAILY Label Comments: APPLY TOPICALLY TO THE AFFECTED AREA(S) EVERY DAY IN THE EVENING ketoconazole 2 % cream 1 applic TOPICAL DAILY Label Comments: APPLY TOPICALLY TO THE AFFECTED AREA(S) EVERY MORNING losartan 100 mg tablet 100 mg PO DAILY Label Comments: TAKE ONE TABLET BY MOUTH EVERY DAY fluticasone propionate 50 mcg/actuation spray,suspension 2 spray INTRANASAL DAILY Label Comments: INSTILL 2 SPRAYS IN EACH NOSTRIL EVERY DAY fesoterodine [Toviaz] 4 mg tablet extended release 24 hr 1 mg PO POSTTR Label Comments: TAKE ONE TABLET BY MOUTH EVERY DAY Dupixent Syringe 300 mg/2 mL syringe 300 mg SQ MONTHLY Referrals Follow up/Referrals: Debbi Gaffney APRN [Primary Care Provider] - See instructions Activity Restrictions/Add. Instructions Additional Instructions/Restrictions: Follow-up with Dr. Feliz to have your medications adjusted. If you have any other concerning signs or symptoms, return to the ER for further evaluation. Clinical Impressions Clinical Impression: Asymptomatic hypertension Discharge ED Provider: Lauro Herron General Adult HPI General Chief complaint: Arrhythmia/Palpitations Stated complaint: Phys ref, High B
[2022-11-01 15:17] VITALS: BP 180/100; PULSE 88; RESP 17; TEMP 36.7; O2SAT 99
== END 2022-11-01 15:23 | disposition home or self-care (01) ==
PROVIDERS: Emergency Provider Emergency Medicine; PCP Nurse Practitioner Family
DX: I10 Essential (primary) hypertension (principal); R00.2 Palpitations; Z87.891 Personal history of nicotine dependence
CPT/HCPCS: 71046; 93005; 99283

== ENCOUNTER 2023-08-09 10:26 | Outpatient (CLI) | payer OTHER, SELFPAY ==
[2023-08-09 10:47] LABS: Basophils # 0.1 K/mm3 (0-0.2); Basophils % 0.7 % (0.1-2.0); Eosinophils # 0.3 K/mm3 (0.0-0.4); Hematocrit 39.1 % (37.0-47.0); Hemoglobin 13.8 g/dL (12.2-16.2); Lymphocytes # 3.9 K/mm3 (0.7-4.5); Mean Corpuscular HGB Conc 35.3 g/dL (31.8-35.4); Mean Corpuscular Volume 87.9 fl (81-99); Mean Platelet Volume 8.3 fl (7.4-10.4); Monocytes # 0.6 K/mm3 (0.1-1.0); Neutrophils # 5.7 K/mm3 (1.8-7.8); Neutrophils % 53.3 % (37.0-80.0); Platelet Count 246 K/mm3 (142-424); Red Blood Count 4.45 M/mm3 (4.20-5.40); Red Cell Distribution Width 13.9 % (11.5-17.5); White Blood Count 10.6 K/mm3 (4.8-10.8)
[2023-08-09 10:54] LABS: Hemoglobin A1C 5.1 % (4.0-6.0)
[2023-08-09 11:46] LABS: Chloride 103 mmol/L (98-107); Potassium 4.1 mmoL/L (3.5-5.1); Sodium 137 mmol/L (136-145)
[2023-08-09 11:49] LABS: Alanine Aminotransferase 21 U/L (12-78); Albumin Level 3.7 g/dl (3.5-5.0); Albumin/Globulin Ratio 1.2 (1.1-1.8); Alkaline Phosphatase 80 U/L (38-126); Anion Gap 10.1 mEq/L (5-15); Aspartate Amino Transferase 28 U/L (14-36); Bilirubin,Total 0.9 mg/dl (0.2-1.3); Blood Urea Nitrogen 14 mg/dl (7-17); Calcium 9.3 mg/dl (8.4-10.2); Carbon Dioxide 28 mmol/L (22.0-30.0); Cholesterol 159 mg/dl (140-200); Estimated Glomerular Filt Rate 59 ml/min (>60); GFR (African American) 72 ML/MIN (>60); Glucose 66 mg/dl (74-100); Total Protein,Serum 6.7 g/dl (6.3-8.2); Triglycerides 178 mg/dl (30-150); VLDL Cholesterol 36 mg/dL (0-40)
[2023-08-09 11:50] LABS: Chol/HDL Ratio 3.2 (1-3.5); HDL Cholesterol 50 mg/dl (40-60)
[2023-08-09 11:54] LABS: Creatinine,Urine Random 89 mg/dL (Not Estab.)
[2023-08-09 11:58] LABS: Microalbumin/Creatinine Ratio 58.9
[2023-08-09 12:01] LABS: Direct LDL Cholesterol 76.38 mg/dL (100-129)
== END 2023-08-09 23:59 ==
LOC: LAB 10:27
PROVIDERS: PCP Nurse Practitioner Family; Visit Provider Nurse Practitioner Family
DX: E11.9 Type 2 diabetes mellitus without complications (principal); E78.5 Hyperlipidemia, unspecified; I10 Essential (primary) hypertension; Z79.84 Long term (current) use of oral hypoglycemic drugs; Z87.891 Personal history of nicotine dependence
CPT/HCPCS: 36415; 80053; 80061; 82043; 82570; 83036; 85025

== ENCOUNTER 2024-04-24 12:17 | Outpatient (CLI) | payer OTHER, SELFPAY ==
--- NOTE | 2024-04-24 12:23 | XR_ITS ---
FINAL REPORT CLINICAL HISTORY: PAIN COMPARISON: None FINDINGS: RIGHT FOOT: Three views of the right foot were obtained. There is no acute fracture or dislocation. Mild degenerative change is present, with calcaneal spurs. There is no soft tissue abnormality. IMPRESSION: Mild degenerative change and calcaneal spurs without acute bony abnormality. Reviewed, Interpreted and Dictated by Hector Hawk III, MD Transcribed by Fanta Deng Authenticated and [facility]
--- NOTE | 2024-04-24 12:23 | XR_ITS ---
FINAL REPORT CLINICAL HISTORY: . COMPARISON: None FINDINGS: LEFT FOOT: Three views of the left foot were obtained. There is no acute fracture or dislocation. Mild degenerative changes are present, with calcaneal spurs. There is no soft tissue abnormality. IMPRESSION: Mild degenerative change, with calcaneal spurs but no acute bony abnormality. Reviewed, Interpreted and Dictated by Hector Hawk III, MD Transcribed by Fanta Deng Authenticated and [facility]
== END 2024-04-24 23:59 | disposition home or self-care (01) ==
LOC: RAD 12:19
PROVIDERS: PCP Nurse Practitioner Family; Visit Provider Nurse Practitioner Family
DX: M79.671 Pain in right foot (principal); M79.672 Pain in left foot
CPT/HCPCS: 73630

== ENCOUNTER 2024-05-06 10:39 | Outpatient (RCR) | payer OTHER, SELFPAY ==
--- NOTE | 2024-05-06 18:31 | HMH.PTOPEV ---
PT Outpatient Evaluation Rehab PT Outpatient Evaluation Start: 05/06/24 16:32 Freq: Status: Active Protocol: Document 05/06/24 16:33 CATHERINE (Rec: 05/06/24 18:28 CATHERINE [id number]) E-signed By Trevin Guardado, PT Outpatient Therapy Subjective History Subjective History Patient is a 48 year old female presenting to outpatient PT with reports of B foot/ankle pain. Symptoms of insidious onset starting approx 2 month ago. No recent imaging to report. No other comorbidities to report. New diagnosis of cancer in past 12 No months? Chief Complaint Pain,Stiff Symptom Type Numbness,Tingling Symptoms Relieved By Rest/Positioning,OTC Meds Symptoms Aggravated By Standing,Physical Activity, Walking Prior Functional Limitations None Current Functional Limitations Housework,Standing,Recreation Activity,Walking Symptom Description Constant but Variable Level of pain today (0-10) 5 Pain scale - at its best (0-10) 3 Pain scale - at its worst (0-10) 9 Ankle/Foot Eval Gait Observation General Gait Pattern Observation No Deviations/Normal Palpation Tenderness bilateral Ankle/Foot Palpation Findings Tenderness Ankle/Foot Palpation Overall Comment ATFL/medial malleolus R>L 2/4 ROM left Ankle/Foot Dorsiflexion w/Knee Extended -11 Active Range Motion (degrees) Ankle/Foot Plantar Flexion Active Range WNL of Motion (degrees) Ankle/Foot Eversion Active Range of WNL Motion (degrees) Ankle/Foot Inversion Active Range of WNL Motion (degrees) Great Toe ROM Reason Not Measured Within Functional Limits, Orthopedic Precautions right Ankle/Foot Dorsiflexion w/Knee Extended -5 Active Range Motion (degrees) Ankle/Foot Plantar Flexion Active Range 54 of Motion (degrees) Ankle/Foot Eversion Active Range of WNL Motion (degrees) Ankle/Foot Inversion Active Range of 25 Motion (degrees) Ankle/Foot ROM Limitations Soft Tissue Tightness Great Toe ROM Reason Not Measured Within Functional Limits MMT left Ankle Dorsiflexion Strength Grade 5 Normal Ankle Plantarflexion Strength Grade 5 Normal Foot Eversion Strength Grade 5 Normal Foot Inversion Strength Grade 5 Normal right Ankle Dorsiflexion Strength Grade 5 Normal Ankle Plantarflexion Strength Grade 5 Normal Foot Eversion Strength Grade 4 Good Foot Inversion Strength Grade 4 Good Special Tests Ankle Anterior Drawer Test Negative Left,Negative Right Ankle Eversion Test Negative Left,Negative Right Ankle Posterior Drawer Test Negative Left,Negative Right Foot Interdigital Neuroma Test Negative Left,Negative Right Lower Extremity Functional Index Activities Today, do you or would you have any difficulty at all with: a.Any of your usual work, housework or A little bit of difficulty school activities b. Your usual hobbies, recreational or Moderate difficulty sporting activities c. Getting into or out of the bath A little bit of difficulty d. Walking between rooms No difficulty e. Putting on your shoes or socks No difficulty f. Squatting No difficulty g. Lifting an object, like a bag of No difficulty groceries from the floor h. Performing light activities around A little bit of difficulty your home i. Performing heavy activities around No difficulty your home j. Getting into or out of a car No difficulty k. Walking 2 blocks Quite a bit of difficulty l. Walking a mile Moderate difficulty m. Going up or down 10 stairs (about 1 No difficulty flight of stairs) n. Standing for 1 hour A little bit of difficulty o. Sitting for 1 hour No difficulty p. Running on even ground No difficulty q. Running on uneven ground No difficulty r. Making sharp turns while running fast No difficulty s. Hopping No difficulty t. 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 Number of Weeks 4-6 Decreased Palpation Tenderness Yes: 1/4 Increase Range of Motion Yes: WNL Increase Strength Yes: 5/5 all planes B Increase Ability to Walk Yes: 30 mi without difficulty Increase Ability to Stand Yes: Improve Ability For Household Care Yes Decrease Subjective C/O Pain Yes: 2/10 at worst Outpatient Therapy Plan of Care Treatment Plan May Include Therapeutic Exercise Including Home Yes Exercise Program Manual Therapy Techniques Yes Neuromuscular Re-education Yes Therapeutic Activities to Return to Yes Previous Functional/Work Level Gait Training Yes ADL/Self Care Education Yes Dry Needling Yes Thermal Modalities Yes Electrical Stimulation Yes Ultrasound/Phonophoresis Yes Iontophoresis Yes Orthotics/Bracing/Splinting Yes Vasopneumatic Compression Pump Yes Massage Yes Eval/Re-Eval Yes Frequency Times per week 2-3 Duration Number of Weeks 4-6 Addendums This patient is a candidate for social No or vocational rehab? Patient/Guardian verbally acknowledges Yes understanding of treatment program and consents to further treatment? Patient/Guardian verbally acknowledges Yes understanding of diagnosis, prognosis and goals for treatment? Eval Complexity PT Charges 67706 - Moderate Complexity Shoulder/Elbow Eval Shoulder Objective Measurements Elbow Objective Measurements PHYSICIAN CERTIFICATION: I certify the specified therapy services for Mavis Hillman are required, authorized, and reviewed every 30 days.
== END 2024-05-06 23:59 | disposition home or self-care (01) ==
LOC: PT 10:39
PROVIDERS: Visit Provider Nurse Practitioner Family
DX: M79.671 Pain in right foot (principal); M79.672 Pain in left foot
CPT/HCPCS: 97110; 97163

== ENCOUNTER 2024-05-09 11:58 | Emergency (ER) | payer OTHER, SELFPAY ==
--- NOTE | 2024-05-09 12:06 | XR_ITS ---
PROCEDURE INFORMATION: Exam: XR Left Foot Exam date and time: 05/09/2024 12:08 PM Age: 48 years old Clinical indication: Pain; Foot; Left TECHNIQUE: Imaging protocol: Radiologic exam of the left foot. Views: 3 or more views. COMPARISON: CR XR FOOT LT MIN 3V 04/24/2024 12:25 PM FINDINGS: Bones/joints: Normal. No fracture or destructive bone lesion. There are prominent calcaneal bone spurs. Soft tissues: Normal. IMPRESSION: No acute findings.
--- NOTE | 2024-05-09 12:18 | XR_ITS ---
PROCEDURE INFORMATION: Exam: XR Right Foot Exam date and time: 05/09/2024 12:14 PM Age: 48 years old Clinical indication: Pain; Foot; Right TECHNIQUE: Imaging protocol: Radiologic exam of the right foot. Views: 3 or more views. COMPARISON: CR XR FOOT RT MIN 3V 04/24/2024 12:25 PM FINDINGS: Bones/joints: Normal. No fracture or destructive bone lesion. There are calcaneal bone spurs. Soft tissues: Normal. IMPRESSION: No acute findings.
--- NOTE | 2024-05-09 12:18 | XR_ITS ---
PROCEDURE INFORMATION: Exam: XR Right Ankle Exam date and time: 05/09/2024 12:12 PM Age: 48 years old Clinical indication: Pain; Ankle; Right TECHNIQUE: Imaging protocol: Radiologic exam of the right ankle. Views: 3 or more views. COMPARISON: CR XR FOOT RT MIN 3V 04/24/2024 12:25 PM FINDINGS: Bones/joints: Normal. No fracture or destructive bone lesion. There are calcaneal bone spurs. Soft tissues: Normal. IMPRESSION: No acute findings.
--- NOTE | 2024-05-09 12:18 | XR_ITS ---
PROCEDURE INFORMATION: Exam: XR Left Ankle Exam date and time: 05/09/2024 12:10 PM Age: 48 years old Clinical indication: Pain; Ankle; Left TECHNIQUE: Imaging protocol: Radiologic exam of the left ankle. Views: 3 or more views. COMPARISON: CR Foot L 05/09/2024 12:08 PM FINDINGS: Bones/joints: Normal. No fracture or destructive bone lesion. There are calcaneal bone spurs. Soft tissues: Normal. IMPRESSION: No acute findings.
--- NOTE | 2024-05-09 12:28 | EXP.UTC ---
Discharge Plan Disposition Patient Disposition: Home, Self-Care Condition: Good Prescriptions Prescriptions: No Action hydrochlorothiazide 50 mg tablet 50 mg PO DAILY Qty: 90 3RF clonidine 0.3 mg/24 hr patch weekly 1 patch transdermal WEEKLY Patient Comments: APPLY 1 PATCH TOPICALLY ONCE A WEEK doxazosin 2 mg tablet 2 mg PO HS Patient Comments: TAKE ONE TABLET BY MOUTH EVERY NIGHT carvedilol 25 mg tablet See Rx Instructions .ROUTE .COMPLEX Qty: 120 5RF Dose Instruction: TAKE TWO TABLETS BY MOUTH TWICE DAILY Rx Instructions: TAKE TWO TABLETS BY MOUTH TWICE DAILY buspirone 5 mg tablet 5 mg PO BID Patient Comments: TAKE ONE TABLET BY MOUTH TWICE DAILY metformin 500 mg tablet 500 mg PO DAILY Patient Comments: TAKE ONE TABLET BY MOUTH EVERY DAY atorvastatin 80 mg tablet 80 mg PO DAILY Patient Comments: TAKE ONE TABLET BY MOUTH EVERY DAY cetirizine 10 mg tablet 10 mg PO DAILY Patient Comments: TAKE ONE TABLET BY MOUTH EVERY DAY oxybutynin chloride 10 mg tablet extended release 24hr 10 mg PO DAILY Patient Comments: TAKE ONE TABLET BY MOUTH EVERY DAY famotidine 40 mg tablet 40 mg PO DAILY Patient Comments: TAKE ONE TABLET BY MOUTH EVERY DAY AT night potassium chloride 10 mEq tablet extended release 10 meq PO DAILY Patient Comments: TAKE ONE TABLET BY MOUTH EVERY DAY omeprazole 40 mg capsule,delayed release(DR/EC) 40 mg PO DAILY Patient Comments: TAKE ONE CAPSULE BY MOUTH EVERY DAY aspirin 81 mg tablet,delayed release (DR/EC) 81 mg PO DAILY Patient Comments: TAKE ONE TABLET BY MOUTH EVERY DAY citalopram 20 mg tablet 20 mg PO DAILY Patient Comments: TAKE ONE TABLET BY MOUTH EVERY DAY imiquimod 5 % cream in packet 1 applic TOPICAL DAILY amlodipine 10 mg tablet 10 mg PO DAILY Patient Comments: TAKE ONE TABLET BY MOUTH EVERY DAY ferrous sulfate [FeroSul] 325 mg (65 mg iron) tablet 325 mg PO DAILY Patient Comments: TAKE ONE TABLET BY MOUTH EVERY DAY fluticasone propionate [Flovent HFA] 220 mcg/actuation HFA aerosol inhaler 2 puff INHALATION Q4-6H PRN (Reason: Breathing Problems) gabapentin 100 mg capsule 100 mg PO BID Patient Comments: TAKE ONE CAPSULE BY MOUTH TWICE DAILY MAY CAUSE DROWSINESS estradiol 0.5 mg tablet 0.5 mg PO DAILY Patient Comments: TAKE ONE TABLET BY MOUTH EVERY DAY azelastine 137 mcg (0.1 %) aerosol,spray 2 spray INTRANASAL BID PRN (Reason: Allergic Rhinitis) Patient Comments: instill 1 TO 2 SPRAYS IN EACH NOSTRIL TWICE DAILY NEEDED FOR nasal allergies albuterol sulfate [Ventolin HFA] 90 mcg/actuation HFA aerosol inhaler 2 inh INHALATION Q4-6H PRN (Reason: Breathing Problems) hydrocortisone 2.5 % ointment 1 applic TOPICAL DAILY Patient Comments: APPLY TOPICALLY TO THE AFFECTED AREA(S) EVERY DAY IN THE EVENING ketoconazole 2 % cream 1 applic TOPICAL DAILY Patient Comments: APPLY TOPICALLY TO THE AFFECTED AREA(S) EVERY MORNING losartan 100 mg tablet 100 mg PO DAILY Patient Comments: TAKE ONE TABLET BY MOUTH EVERY DAY fluticasone propionate 50 mcg/actuation spray,suspension 2 spray INTRANASAL DAILY Patient Comments: INSTILL 2 SPRAYS IN EACH NOSTRIL EVERY DAY fesoterodine [Toviaz] 4 mg tablet extended release 24 hr 1 mg PO POSTTR Patient Comments: TAKE ONE TABLET BY MOUTH EVERY DAY Dupixent Syringe 300 mg/2 mL syringe 300 mg SQ MONTHLY Referrals Follow up/Referrals: Debbi Gaffney APRN [Primary Care Provider] - See instructions Activity Restrictions/Add. Instructions Additional Instructions/Restrictions: Rest the extremities, Elevate the extremities as tolerated while you are resting. Take tylenol or ibuprofen for pain. Follow up with Dr. Gomez's (podiatry) office as discussed and you plan to do. Follow up with your regular doctor. GO TO THE ER FOR ANY WORSENING SYMPTOMS Clinical Impressions Clinical Impression: Left ankle sprain, Sprain of ankle, right Instructions Patient Instructions: Ankle Sprain, DI for Ankle Sprain Print Language Print Language: [place] Discharge ED Provider: Kw[facility] General Stated complaint: AO-Fall, Pain in l foot Time Seen by Provider: 05/09/24 12:28 History of Present Illness Provider Complaint: She states that she fell last night while going down bleachers at a ball game. She is having right and left ankle pain and left foot pain. Related Data Home Medications ?Medication ?Instructions ?Recorded ?Confirmed albuterol sulfate 90 mcg/actuation 2 inh inhalation Q4-6H PRN 11/01/22 04/09/24 aerosol inhaler (Ventolin HFA) Breathing Problems amlodipine 10 mg tablet 10 mg PO DAILY High blood pressure 11/01/22 04/09/24 aspirin 81 mg tablet,delayed 81 mg PO DAILY Heart 11/01/22 04/09/24 release atorvastatin 80 mg tablet 80 mg PO DAILY Cholesterol 11/01/22 04/09/24 azelastine 137 mcg (0.1 %) nasal 2 spray intranasal BID PRN 11/01/22 04/09/24 spray Allergic Rhinitis buspirone 5 mg tablet 5 mg PO BID Mood 11/01/22 04/09/24 cetirizine 10 mg tablet 10 mg PO DAILY Allergies 11/01/22 04/09/24 citalopram 20 mg tablet 20 mg PO DAILY Mood 11/01/22 04/09/24 dupilumab 300 mg/2 mL subcutaneous 300 mg SQ MONTHLY Skin condition 11/01/22 04/09/24 syringe (Vital Farmsixent) estradiol 0.5 mg tablet 0.5 mg PO DAILY Supplement 11/01/22 04/09/24 famotidine 40 mg tablet 40 mg PO DAILY Acid reflux 11/01/22 04/09/24 ferrous sulfate 325 mg (65 mg 325 mg PO DAILY Supplement 11/01/22 04/09/24 iron) tablet (FeroSul) fesoterodine 4 mg tablet,extended 1 mg PO POSTTR Urination 11/01/22 04/09/24 release 24 hr (Toviaz) fluticasone propionate 220 2 puff inhalation Q4-6H PRN 11/01/22 04/09/24 mcg/actuation HFA aerosol inhaler Breathing Problems (Flovent HFA) fluticasone propionate 50 2 spray intranasal DAILY Allergic 11/01/22 04/09/24 mcg/actuation nasal rhinitis spray,suspension gabapentin 100 mg capsule 100 mg PO BID Pain 11/01/22 04/09/24 hydrocortisone 2.5 % topical 1 applic topical DAILY Rash 11/01/22 04/09/24 ointment imiquimod 5 % topical cream packet 1 applic topical DAILY Rash 11/01/22 04/09/24 ketoconazole 2 % topical cream 1 applic topical DAILY Rash 11/01/22 04/09/24 losartan 100 mg tablet 100 mg PO DAILY High blood pressure 11/01/22 04/09/24 metformin 500 mg tablet 500 mg PO DAILY Diabetes 11/01/22 04/09/24 omeprazole 40 mg capsule,delayed 40 mg PO DAILY Acid reflux 11/01/22 04/09/24 release oxybutynin chloride 10 mg 10 mg PO DAILY Urination 11/01/22 04/09/24 tablet,extended release 24 hr potassium chloride 10 mEq 10 meq PO DAILY Supplement 11/01/22 04/09/24 tablet,extended release clonidine 0.3 mg/24 hr weekly 1 patch transdermal WEEKLY 02/12/24 04/09/24 transdermal patch doxazosin 2 mg tablet 2 mg PO HS 02/12/24 04/09/24 Previous Rx's ?Medication ?Instructions ?Recorded hydrochlorothiazide 50 mg tablet 50 mg PO DAILY #90 tabs 12/22/22 carvedilol 25 mg tablet See Rx Instructions .Route 05/07/23 .COMPLEX #120 tabs Allergies Allergy/AdvReac Type Severity Reaction Status Date / Time sulfamethoxazole Allergy Intermediate Verified 04/09/24 09:05 [From Bactrim] trimethoprim [From Bactrim] Allergy Intermediate Verified 04/09/24 09:05 latex [LATEX] Allergy Unknown I-RASH Verified 04/09/24 09:05 nickel [NICKEL] Allergy Unknown I-RASH Verified 04/09/24 09:05 promethazine [PROMETHAZINE] Allergy Unknown NA-NAUSEA/V Verified 04/09/24 09:05 OMITING PFSH PFSH Disclaimer: The information contained in this section may have been updated after the patient was seen, as this information can be updated by other users. Medical History Hypertension HLD (hyperlipidemia) Diabetes Abnormal stress test Tachycardia Social History Smoking Status: Former smoker tobacco type: cigarettes second hand exposure: No alcohol intake: never substance use type: denies use current occupational status: other Travel in the last 8 weeks: None household members: spouse and children housing: house current occupation: [employer] current occupational exposures/hazards: No caffeine: Yes ROS Obtained: Yes All systems reviewed & no additional complaints except as documented Constitutional Constitutional: Denies chills and Denies fever(s) Eyes Eyes: Denies eye discharge ENT Ears, Nose, Mouth, and Throat: Denies dizziness, Denies otalgia and Denies sore throat Cardiovascular Cardiovascular: Denies chest pain Respiratory Respiratory: Denies shortness of breath, Denies chest congestion, Denies cough, Denies stridor and Denies wheezing Gastrointestinal Gastrointestingal: Denies nausea or vomiting Musculoskeletal Musculoskeletal: Reports system reviewed and no additional complaints, except as documented and Denies arthralgias Integumentary/Breasts Skin/Breast: Denies rash Neurologic Neurologic: Denies dizziness and Denies paresthesias Allergic/Immunologic Allergic/Immunologic: Denies wheezing Physical Exam General General appearance: alert and in no apparent distress Head Head exam: atraumatic, normocephalic and normal inspection Eye Eye exam: Present normal appearance, PERRL and EOMI ENT ENT exam: Present normal exam, normal oropharynx, mucous membranes moist, TM's normal bilaterally and normal external ear exam Neck Neck exam: Present normal inspection, full ROM and trachea midline; Absent meningismus or lymphadenopathy Chest Chest inspection: Present normal inspection and symmetric chest wall rise; Absent tenderness Respiratory Respiratory exam: Present normal lung sounds bilaterally; Absent respiratory distress Cardiovascular Cardiovascular exam: Present regular rate and normal rhythm; Absent JVD Abdominal Exam Abdominal exam: Present soft and normal bowel sounds; Absent distention, tenderness or guarding Extremities Exam Extremities exam: Present normal capillary refill; Absent calf tenderness Expanded Lower Extremity Exam Left: Knee exam: Present normal inspection, full ROM and knee extension intact; Absent tenderness Lower leg exam: Present full ROM, tenderness and Achilles tendon intact; Absent swelling, abrasion, laceration, ecchymosis, deformity, crepitus, dislocation, erythema, palpable cord or Homans' sign Ankle exam: Present full ROM, tenderness and swelling; Absent abrasion, laceration, ecchymosis, deformity, crepitus, dislocation, erythema, tenderness over talofibular lig or anterior draw sign Foot/toe exam: Present full ROM, tenderness and swelling; Absent abrasion, laceration, ecchymosis, deformity, crepitus, dislocation, erythema, amputation, puncture wound, foreign body, calcaneal tenderness, tenderness at base of 5th metatarsal, nail avulsion or subungual hematoma Neurovascular/Tendon exam: Present normal capillary refill, normal 2-point discrimination and normal fine/light touch; Absent pulse deficit, motor deficit, sensory deficit, tendon deficit, extremity cold to touch or pallor Gait: observed and limited by pain Right: Knee exam: Present normal inspection and full ROM; Absent tenderness or knee extension intact Lower leg exam: Present full ROM, tenderness and Achilles tendon intact; Absent swelling, abrasion, laceration, ecchymosis, deformity, crepitus, dislocation, erythema, palpable cord or Homans' sign Ankle exam: Present full ROM and tenderness; Absent swelling, abrasion, laceration, ecchymosis, deformity, crepitus, dislocation, erythema, tenderness over talofibular lig or anterior draw sign Foot/toe exam: Present full ROM, tenderness and swelling; Absent abrasion, laceration, ecchymosis, deformity, crepitus, dislocation, erythema, amputation, puncture wound, foreign body, calcaneal tenderness, tenderness at base of 5th metatarsal, nail avulsion or subungual hematoma Neurovascular/Tendon exam: Present normal capillary refill, normal 2-point discrimination and normal fine/light touch; Absent pulse deficit, motor deficit, sensory deficit, tendon deficit, extremity cold to touch or pallor Gait: observed and limited by pain Back Exam Back exam: Present normal inspection; Absent tenderness Neurological Exam Neurological exam: Present alert and oriented X3 Psychiatric Psychiatric exam: Present normal affect and normal mood Skin Skin exam: Present warm, dry, intact and normal color Lymphatic Lymphatic Findings: no adenopathy Medical Decision Making Medical Records Medical records reviewed: No I reviewed the patient's medical records. Screening: Per USPSTF and CDC recommendations, given the prevalence of disease in our region, it is our hospital?s policy to screen for HIV and viral Hepatitis for all patients aged 18 and over and those with ongoing risk factors. John Inquiry Pt receiving controlled substance: No Orders (Tests/Meds): ORDERS Category Date Time Status Ankle XR - Left minimum 3 Views [XR ankle LT min 3V] Exams 05/09/24 12:18 Taken Stat Ankle XR -Right minimum 3 Views [XR ankle RT min 3V] Exams 05/09/24 12:18 Taken Stat Foot XR left minimum 3 views [XR foot LT min 3V] Stat Exams 05/09/24 12:06 Taken XR foot RT min 3V Stat Exams 05/09/24 12:18 Taken
[2024-05-09 12:30] VITALS: BP 151/79; PULSE 100; RESP 20; TEMP 36.4; O2SAT 100; BMI 37.2
[2024-05-09 13:31] VITALS: BP 151/79; PULSE 100; RESP 20; TEMP 36.4
== END 2024-05-09 13:34 | disposition home or self-care (01) ==
PROVIDERS: Emergency Provider Nurse Practitioner Family; PCP Nurse Practitioner Family
DX: S93.402A Sprain of unspecified ligament of left ankle, initial encounter (principal); S93.401A Sprain of unspecified ligament of right ankle, initial encounter; W19.XXXA Unspecified fall, initial encounter
CPT/HCPCS: 73610; 73630; 99213; G0381